=== PATIENT | male | born 1935 | race Caucasian/White ===

== ENCOUNTER 2017-08-19 08:18 | Outpatient (CLI) | payer MEDICARE ==
--- NOTE | 2017-08-19 10:08 | RAD ---
4 VIEWS LUMBOSACRAL SPINE: Date: 08/19/17 COMPARISON: None. HISTORY: Low back pain for several years. COMPARISON: None. FINDINGS: Four views of the lumbosacral spine show slight wedging of the L3 vertebral body. There is Grade I an terolisthesis of L3 on L4. This is unchanged with flexion and extension, although there is apparent w idening of the posterior aspect of the L3-4 intervertebral disc with extension when compared to flexi on. There is loss of intervertebral disc space height throughout the rest of the lumbar spine. Modera te osteophytes and severe posterior facet arthrosis are present. 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 POS: MARIO
--- NOTE | 2017-08-19 11:30 | MRI ---
MRI OF THE LUMBAR SPINE WITHOUT CONTRAST: INDICATIONS: An 81-year-old male with lumbar radiculopathy and low back pain for several years. COMPARISON: Lumbar radiograph dated 08/19/2017. FINDINGS: There are five lumbar type vertebra. There is a 2.7 cm T2 hyperintense, T1 hypointense lesion involving the left mid kidney, consistent wi th a simple cyst. No retroperitoneal lymphadenopathy is evident. There is modic endplate degenerative change seen at L3-L4 and at T11-T12. The conus is seen to termi ciera at L1. At the L5-S1 level, there is a broad-based disk bulge with a superimposed central annular fissure, me asuring 1.1 cm. There is moderate right and mild left facet joint degenerative change. The broad-ba sed disk bulge with facet hypertrophy and loss of disk space height at L5-S1 induces moderate to roseanna re right neural foraminal narrowing. At L4-L5, there is grade 1 anterolisthesis, likely related to severe facet degenerative change. Ther e is a broad-based disk bulge, in addition to ligamentum flavum hypertrophy and facet hypertrophy ind ucing moderate to severe central canal narrowing. The loss of disk space height, in addition to the anterolisthesis and facet hypertrophy, induces moderate to severe left and mild to moderate right michelle ral foraminal narrowing. At L3-L4, there is a broad-based disk osteophyte complex with severe facet hypertrophy and ligamentum flavum hypertrophy inducing severe central canal narrowing. The disk bulge, in addition to the face t hypertrophy and loss of disk space height induces severe left and mild right neural foraminal narro wing. At L2-L3, there is a disk osteophyte complex with facet hypertrophy inducing mild neural foraminal na rrowing with moderate bilateral neural foraminal narrowing. At L1-L2, there is a mild broad-based bulge without appreciable central canal or neural foraminal ras rowing. At T12-L1, there is a mild broad-based bulge without appreciable central canal or neural foraminal na rrowing. At T11-T12, there is a broad-based bulge with facet hypertrophy inducing mild central canal narrowing , seen on the sagittal images only. IMPRESSION: 1. Severe central canal narrowing at L3-L4 with severe left and mild right neural foraminal narrowin g. 2. Moderate to severe central canal narrowing at L4-L5 with moderate to severe left and mild to mode rate right neural foraminal narrowing. 3. Moderate to severe right neural foraminal narrowing at L5-S1 due to a disk osteophyte complex and facet hypertrophy. 4. Mild central canal narrowing at L2-L3 with moderate bilateral neural foraminal narrowing. 5. Mild central canal narrowing seen at T11-T12. POS: OFF
== END 2017-08-19 08:19 | disposition home or self-care (01) ==
LOC: TBSIIMAG 08:18
PROVIDERS: ATTEND Surgery
DX: M47.26 Other spondylosis with radiculopathy, lumbar region (principal); M43.16 Spondylolisthesis, lumbar region; M48.061 Spinal stenosis, lumbar region without neurogenic claudication; M99.53 Intervertebral disc stenosis of neural canal of lumbar region; M25.78 Osteophyte, vertebrae; M48.04 Spinal stenosis, thoracic region
CPT/HCPCS: 72100; 72148

== ENCOUNTER 2017-08-27 23:15 | Inpatient (IN) | payer MEDICARE ==
[2017-08-28 01:06] LABS: CKMB 2.3 ng/mL (0-6.6)
[2017-08-28 01:21] LABS: Troponin I 1.494 ng/mL (< 0.028)
--- NOTE | 2017-08-28 02:32 | HP ---
PRIMARY CARE PHYSICIAN: Dr. Triplett. REASON FOR ADMISSION: Transfer from [facility] for pneumonia, non-ST fara vation [place]. HISTORY OF PRESENT ILLNESS: An 81-year-old male who was having cough productive of yellowish sputum for last 3 days. He started having high-grade fever today. The patient's measured temperature, at that time it was 101. The patient was taken to local urgent care in [place]. At that time, the patient had a chest x-ray, which was unremarkable. Flu screen was negative. The patient was hypoxic and he was having high grade fever with 101 temperature and that is why he was directed to [facility]. At [facility], the patient was hypoxic. He had elevated BNP, as well as elevated WBC count. His chest x-ray showed left lower lobe infiltration. He was given Rocephin, louis thromycin, aspirin, and nitroglycerin. The patient had a significantly abnormal troponin though the patient was not complaining of any chest pain, palpitation, dizziness, but his troponin was significa ntly elevated and considering Non-STEMI, the patient was given aspirin and nitroglycerin. Subsequent ly, this patient was transferred to our hospital for higher level of care. This patient is up to date in flu and pneumonia vaccine. He has cough productive of yellowish sputum . He denies any pleuritic chest pain. He denies any recent travel or sick exposure. He denies any recent upper respiratory infection. REVIEW OF SYSTEMS: The following complete review of systems was negative, unless otherwise mentioned in the HPI or below: Constitutional: Weight loss or gain, ability to conduct usual activities. Skin: Rash, itching. Eyes: Double vision, pain. ENT/Mouth: Nose bleeding, neck stiffness, pain, tenderness. Cardiovascular: Palpitations, dyspnea on exertion, orthopnea. Respiratory: Shortness of breath, wheezing, cough, hemoptysis, fever or night sweats. Gastrointestinal: Poor appetite, abdominal pain, heartburn, nausea, vomiting, constipation, or diarr hea. Genitourinary: Urgency, frequency, dysuria, nocturia. Musculoskeletal: Pain, swelling. Neurologic/Psychiatric: Anxiety, depression. Allergy/Immunologic: Skin rash, bleeding tendency. Please see my HPI for pertinent positives and negatives. All other review of systems reviewed and ne gative except as mentioned in the HPI. ALLERGIES: No known drug allergies. CURRENT HOME MEDICATIONS: Atenolol 50 mg twice daily, lisinopril 20 mg twice daily, amlodipine 5 mg p.o. daily, Plavix 75 mg p.o. daily, Zocor 20 mg p.o. at bedtime, metformin 500 mg twice daily, multi vitamin 1 tablet p.o. daily, aspirin 81 mg p.o. daily, Coenzyme Q10 of 30 mg 2 tablets daily, saw pal metto 500 mg 2 tablets daily in the morning. PAST MEDICAL HISTORY: Coronary artery disease, required CABG; diabetes, type 2; hypertension; glauco ma; gastroesophageal reflux disease; gallstone; history of pancreatitis; mild Alzheimer's dementia; c hronic kidney disease, stage 3; history of melanoma; benign enlargement of prostate. PAST SURGICAL HISTORY: CABG, cholecystectomy, hernia repair, bilateral carotid surgery. PAST PSYCHIATRIC HISTORY: Reviewed and negative. SOCIAL HISTORY: The patient is a former smoker. He quit smoking more than 10 years ago. He is tavia ied. He lives at home with his . No history of alcohol or other illicit drug abuse. FAMILY HISTORY: No strong family history of premature coronary artery disease, stroke or cancer. EMERGENCY ROOM COURSE: The patient has received Rocephin, azithromycin, nitroglycerin, aspirin, Tyle nol 1 gram at other emergency room. ADDITIONAL INFORMATION: This patient is also following Dr. Solomon for his chronic low back pain prob darrion and he is planned for surgery and that is why he was instructed to get a cardiology clearance bef [facility] surgery and patient's family member made a followup appointment with Dr. Mullen and they are sabra g to see him on coming Thursday. The patient's family member also request cardiac clearance before discharge and cardiology evaluation. PHYSICAL EXAMINATION: VITAL SIGNS: Currently in our emergency room, blood pressure 141/71, pulse 91, respiratory rate 18, temperature 99.9, saturation 84% on room air, weight 62.1 kilograms. GENERAL: The patient is currently ill. No obvious acute distress. HEAD: Normocephalic, atraumatic. EYES: Pupils are round and reactive to light. Extraocular muscle intact. ENT: Oropharynx within normal limits. Moist mucous membranes. No oral lesions. No pharyngeal eryt sierra, no exudate. NECK: Supple, no JVD, no thyromegaly, no carotid bruits. LUNGS: Bibasilar reduced air entry, left basal rales and rhonchi noted. CARDIAC: S1, S2 appears regular. No murmur, no gallop, no rub. ABDOMEN: Soft, bowel sounds present, nontender, nondistended. No organomegaly, no mass, no suprapub ic tenderness. BACK: Unremarkable, no CVA tenderness. EXTREMITIES: Upper extremity: Passive movement of all joints are normal. Lower extremity: No carlos a. Good peripheral pulsation. SKIN: No skin rash. HEMATOLOGICAL SYSTEM: No lymphadenopathy. NEUROLOGIC: Nonfocal examination. SIGNIFICANT LABORATORY DATA AND IMAGIN. Monitor showing sinus rhythm. 2. Blood test done at [facility] reviewed, currently urinalysis is mikal l. 3. Troponin I 1.77 and then 1.91, glucose 319, BUN 19, creatinine 1.39, potassium 2.9, sodium 139, c hloride 100, carbon dioxide 27, calcium 9.1, bilirubin 0.4, alkaline phosphatase 49, AST 33, ALT 32, protein 7.3, albumin 3.7, magnesium 1.5, phosphorus 2.6. BNP 2334, lactic acid 2.9. CBC: WBC 12.0, hemoglobin 11.8, platelet 219. 4. Chest x-ray consistent with left lower lobe pneumonia, postsurgical changes. ASSESSMENT AND PLAN/IMPRESSION: 1. Sepsis with acute organ dysfunction. This patient has leukocytosis, high grade fever, lactic aci dosis. At the same time, the patient has hypoxic respiratory failure and non-STEMI type 2. All cons istent with acute sepsis with acute organ dysfunction. The patient will be given broad spectrum anti biotic therapy with Rocephin and Levaquin. We will follow up on culture result and change antibiotic therapy accordingly. 2. Acute hypoxic respiratory failure associated with left lower lobe community-acquired pneumonia. We will monitor oxygen saturation while in hospital. We will continue to provide oxygen to keep satu ration above 92%. 3. Non-ST elevation myocardial infarction, type 2. This patient's elevated troponin is most likely related with demand ischemia. This patient does not have any angina. At this point, we will consult Cardiology for their opinion. Meanwhile, we will continue with aspirin 325 mg p.o. daily, nitroglyc selin on p.r.n. basis. We will check lipid profile for risk stratification. We will obtain echocardi ography. Further decision will defer to Cardiology. We will do serial cardiac enzymes as well. 4. Abnormal electrolytes. This patient has hypokalemia and hypomagnesemia. We will replace magnesi um sulfate 2 grams and potassium chloride 20 mEq IV one time dose and we will repeat labs tomorrow. 5. Diabetes, type 2. We will continue insulin as per sliding scale per protocol and we will continu e his home medication as well as insulin as per home dosage. 6. Hypertension. We will continue lisinopril 20 mg twice daily and atenolol 50 mg twice daily and a mlodipine 5 mg p.o. daily. We will continue with nitro patch q.8 hourly. 7. Coronary artery disease with history of coronary artery bypass graft. We will continue aspirin, Plavix, statin therapy, beta daen therapy, and CAN inhibitor as per home dosage. 8. Dyslipidemia. Continue Zocor 20 mg p.o. at bedtime and check lipid profile tomorrow morning. 9. Chronic kidney disease, stage 3. We will monitor renal function and avoid nephrotoxic agents. 10. Elevated BNP. We will obtain echocardiography. This patient might have underlying chronic syst olic heart failure. We will avoid giving him fluid to prevent fluid overload status. 11. Normocytic anemia. We will continue multivitamin therapy while in hospital. 12. Deep venous thrombosis prophylaxis. Lovenox 40 mg subcutaneously daily. 13. Gastrointestinal prophylaxis. Pepcid 20 mg p.o. b.i.d. 14. Code status: The patient is FULL CODE. The patient's is surrogate decision maker. Disposition plan based on clinical course. We are expecting patient's stay in the hospital more than 2 midnights. Plan of care discussed with the patient and family member at bedside in the emergency room.
[2017-08-28 03:27] VITALS: BMI 20.5
[2017-08-28] MEDS ORDERED: hydrALAZINE 20 MG/ML VIAL SLOW IVP PRN ×2 (03:44→03:46)
[2017-08-28] MEDS ORDERED: Sodium Chloride 0.65% Nasal 44 ML BOT EA NARE PRN (03:46)
[2017-08-28] MEDS ORDERED: cefTRIAXone\\ROCEPHIN 1 GM in Sodium Chloride 0.9% 100 ML IVPB SCH (03:46)
[2017-08-28] MEDS ORDERED: Artificial Tears 18 DROP/0.9 ML EA EYE PRN (03:46)
[2017-08-28] MEDS ORDERED: Diabetic Tussin 200 MG/10 ML UDCUP PO PRN (03:46)
[2017-08-28] MEDS ORDERED: Loratadine 10 MG TAB PO PRN (03:46)
[2017-08-28] MEDS ORDERED: Zolpidem Tartrate 5 MG TAB PO PRN (03:46)
[2017-08-28] MEDS ORDERED: Loperamide HCl 2 MG CAP PO PRN (03:46)
[2017-08-28] MEDS ORDERED: Dextrose 5% in Water 1,000 ML IV PRN (03:46)
[2017-08-28] MEDS ORDERED: Acetaminophen 325 MG TAB PO PRN (03:46)
[2017-08-28] MEDS ORDERED: Senokot 8.6 MG TAB PO PRN (03:46)
[2017-08-28] MEDS ORDERED: Milk Of Magnesia 30 ML UDCUP PO PRN (03:46)
[2017-08-28] MEDS ORDERED: Dextrose 50% Abboject 50 ML SYRINGE SLOW IVP PRN (03:46)
[2017-08-28] MEDS ORDERED: Ondansetron HCl/PF 4 MG/2 ML Vial IVP PRN (03:46)
[2017-08-28] MEDS ORDERED: Nitroglycerin 0.4 MG TAB (25 Tab Bottle) SL PRN (03:46)
[2017-08-28] MEDS ORDERED: Ondansetron ODT 4 MG TAB PO PRN (03:46)
[2017-08-28] MEDS ORDERED: Mag-Al 1200 mg/1200 mg/30 ML UDCUP PO PRN (03:46)
[2017-08-28] MEDS ORDERED: HYDROcodone/Acetaminophen 5/325 mg Tablet PO PRN (03:46)
[2017-08-28] MEDS ORDERED: Eucerin (Mineral Oil/Petrolatum,White) 30 gm Jar TOP PRN (03:46)
[2017-08-28] MEDS ORDERED: Furosemide 40 MG/4 ML VIAL ONE (04:09)
[2017-08-28] MEDS ORDERED: Furosemide 40 MG/4 ML VIAL SLOW IVP SCH (04:15)
[2017-08-28] MEDS ORDERED: Nitroglycerin 50 MG/250 ML BOT 250 ML IVPB SCH (04:15)
[2017-08-28] MEDS ORDERED: Magnesium Sulfate 3 GM in Sodium Chloride 0.9% 100 ML IVPB SCH (04:30)
[2017-08-28] MEDS ORDERED: Potassium Chloride 40 MEQ in Sodium Chloride 0.9% 250 ML 250 ML IVPB SCH ×4 (04:30)
--- NOTE | 2017-08-28 05:01 | PRG ---
DATE OF SERVICE: 08/28/2017 SUBJECTIVE: Stefano nobles was called. The patient was seen and examined at bedside. The patient was h ypertensive. His blood pressure was over 210/90. He was hypoxic and saturating only 91% with 3-4 li ters oxygen. OBJECTIVE: On examination, he has bibasilar rales. He has end expiratory wheezing. Clinically seem s like patient has developed acute pulmonary edema. ASSESSMENT AND PLAN: We gave him Lasix 40 mg IV. We decided to transfer him to ICU. We will start nitroglycerin drip. We will repeat chest x-ray. We will check magnesium and routine labs this morni ng including BNP. We will also consult rental coordinator because patient is in CCU. Plan of care discus sed with the patient's at bedside. At this point, impression is acute pulmonary edema and acute respiratory failure with hypoxia, most likely due to acute congestive heart failure, will closely mo nitor in CCU and titrate nitroglycerin drip.
[2017-08-28] MEDS: Nitroglycerin 2% Ointment 1 INCH/1 GM Packet TOP SCH ×3 (05:23→22:27)
[2017-08-28] MEDS: Furosemide 40 MG/4 ML VIAL SLOW IVP SCH ×2 (05:24→14:25)
[2017-08-28 05:29] LABS: Lactic Acid 1.9 mmol/L (0.5-2.2)
[2017-08-28] MEDS ORDERED: Nitroglycerin 2% Ointment 1 INCH/1 GM Packet TOP SCH (06:00)
[2017-08-28] MEDS: HumaLOG 300 UNITS/3 ML VIAL SC PRN ×3 (06:16→17:31)
[2017-08-28 07:39] LABS: #Lymphocytes 2.4 thou/uL (1.20-3.40); #Monocytes 1.6 thou/uL (0.11-0.59); #Neutrophils 11.5 thou/uL (1.40-6.50); %Eosinophils 0.1 % (0.0-10.0); %Lymphocytes 15.2 % (21.0-51.0); %Monocytes 10.4 % (0.0-10.0); %Neutrophils 74.2 % (42.0-75.0); Hemoglobin 12.6 g/dL (14.0-18.0); Mean Corpuscular HGB CONC 32.1 g/dL (32.0-36.0); Mean Corpuscular Hemoglobin 31.7 pg (27.0-31.0); Mean Corpuscular Volume 98.8 fl (80.0-94.0); Mean Platelet Volume 8.4 fL (7.4-10.4); Platelet Count 241 thou/uL (130-400); RBC Distribution Width 12.5 % (11.5-14.5); Red Blood Cell (RBC) Count 3.97 mill/uL (4.70-6.10); White Blood Cell (WBC) Count 15.5 thou/uL (4.8-10.8)
[2017-08-28 07:50] LABS: ALT (SGPT) 28 U/L (8-55); AST (SGOT) 29 U/L (5-34); Albumin 3.8 g/dL (3.4-4.8); Alkaline Phosphatase 50 U/L (40-150); Anion Gap 15 mmol/L (10-20); BUN (Urea Nitrogen) 19 mg/dL (8.4-25.7); Bilirubin, Total 0.4 mg/dL (0.2-1.2); Calc. Creatinine Clearance 39 mL/min (70-130); Calcium 9.1 mg/dL (7.8-10.44); Carbon Dioxide 24 mmol/L (23-31); Chloride 101 mmol/L (98-107); Estimated GFR-MDRD 50; Globulin 3.5 g/dL (2.4-3.5); Glucose 327 mg/dL (83-110); Protein, Total 7.3 g/dL (5.8-8.1); Sodium 137 mmol/L (136-145)
[2017-08-28 07:53] LABS: Potassium 2.9 mmol/L (3.5-5.1)
[2017-08-28 08:01] LABS: Band 24 % (5-11); Lymphocytes 20 % (21-51); MDiff Complete? YES; Monocytes 13 % (0-10); Neutrophil 42 % (42-75); RBC Morphology Normal; Reactive Lymphocytes 1 % (0-10)
--- NOTE | 2017-08-28 08:08 | CON ---
DATE OF CONSULTATION: 08/28/2017 CONSULTING PHYSICIAN: Dr. Garcia from the [facility]. REASON FOR CONSULTATION: Acute respiratory failure. HISTORY OF PRESENT ILLNESS: The patient is a pleasant 81-year-old male who [facility] emergency room at [facility] in [place]. There he had presented with cough with productive sputum for the last 3 days. He had a fever of 101 prior to admission. He was found to have a chest x-ray with left lower lobe infiltrate. He was started on antibiotics. He als o had an abnormal troponin; therefore transfer was requested to this facility for further evaluation. Last night he decompensated while on the floor and required a Code Green. He was transported to [facility] CCU. He was placed on noninvasive positive pressure ventilation. He was given several doses of [place] six and is now breathing better this morning. He can give a history without becoming short of breath at this time. PAST MEDICAL HISTORY: 1. Coronary artery disease. 2. Type 2 diabetes mellitus. 3. Glaucoma. 4. Gastroesophageal reflux disease. 5. Pancreatitis. 6. Early Alzheimer dementia. 7. Chronic kidney disease stage 3. 8. Melanoma. 9. Benign prostatic hypertrophy. PAST SURGICAL HISTORY: 1. Coronary bypass grafting surgery. 2. Coronary stent placement. 3. Cholecystectomy. 4. Hernia repair. 5. Bilateral carotid surgery. PSYCHIATRIC HISTORY: Unremarkable. MEDICATIONS PRIOR TO ADMISSION: Atenolol 50 mg twice daily, lisinopril 20 mg twice daily, amlodipine 5 mg daily, Plavix 75 mg daily, Zocor 20 mg nightly, metformin 500 mg b.i.d., multivitamin 1 daily, aspirin 81 mg daily, Coenzyme Q10 2 tablets daily, Saw [place] 500 mg 2 tablets every morning. ALLERGIES: None. SOCIAL HISTORY: The patient quit smoking 30 years ago. He smoked for about 10 years. He is . 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 He does not consume alcohol, he does not use illicit drugs. FAMILY MEDICAL HISTORY: Unremarkable for chronic lung disease. REVIEW OF SYSTEMS: A 12 point review of systems was otherwise negative except for that in the histor y of present illness. PHYSICAL EXAMINATION: VITAL SIGNS: Temperature 98.7, pulse 75, blood pressure 140/75. Total intake 31, output 1300. Off the BiPAP. GENERAL: The patient is awake and alert and conversant and in no distress. HEENT: Remarkable for alopecia. Pupils react. Sclerae are anicteric. Oropharynx clear. NECK: No adenopathy, no bruits, no JVD. LUNGS: Now clear to auscultation without wheezing or rhonchi. CARDIAC: S1, S2 regular without audible murmur, rub or gallop. ABDOMEN: Soft, nontender, no hepatosplenomegaly. EXTREMITIES: Without clubbing, cyanosis, or edema. He has mild muscle wasting. He has full sensati on throughout. Moves all 4 extremities without difficulty. Cranial nerves II-XII are intact. SKIN: Shows no bruising or jaundice. LABORATORY DATA: White blood cell count 15.5, hemoglobin 12, hematocrit 39.2, platelet count 241. T roponin 1.4. BNP 2373. The remainder of his chemistry is pending. Chest x-ray shows hyperinflation. There were cephalization of flow last night. No acute infiltrates that looked very suspicious for pneumonia. ASSESSMENT: 1. Acute systolic congestive heart failure. 2. Acute respiratory failure requiring mechanical ventilation. 3. Question of concurrent pneumonia. 4. Diabetes mellitus. 5. History of coronary artery disease. PLAN: 1. I have removed the BiPAP this morning and we will see how he does. Currently, he is on nitroglyc selin drip, but I would assume that I can probably be tapered off. 2. Continue diuresis. 3. Continue IV antibiotics for the time being. 4. Cardiology consultation has been requested and is pending. 5. Seventy minutes time was spent on this case, of those 70 minutes, greater than 50% of the time wa s spent in counseling and coordination of care.
--- NOTE | 2017-08-28 08:33 | RAD ---
CHEST 1 VIEW: Date: 08/28/17 HISTORY: Respiratory distress. COMPARISON: Chest 2 views dated 08/27/17. FINDINGS: Heart size upper limits of normal. There are new interstitial and alveolar opacities throughout the l ungs. No pneumothorax. The left costophrenic sulcus is not well interrogated and is out of field of v iew. IMPRESSION: 1. Cardiomegaly with interstitial and developing alveolar edema. Follow-up after treatment recommend ed. 2. Multiple left-sided skin folds creating Mach bands, which could be interpreted as pneumothorax al though is felt to just be skin folds. POS: STACY
[2017-08-28] MEDS ORDERED: Amlodipine 5 MG TAB PO SCH (09:00)
[2017-08-28] MEDS ORDERED: Atenolol 50 MG TAB PO SCH (09:00)
[2017-08-28] MEDS ORDERED: Enoxaparin Sodium 40 MG/0.4 ML SYRINGE SC SCH (09:00)
[2017-08-28] MEDS: Aspirin 325 MG TAB PO SCH (09:51)
[2017-08-28] MEDS: Lisinopril 20 MG TAB PO SCH ×2 (09:51→21:08)
[2017-08-28] MEDS: Ubidecarenone 50 MG CAP PO SCH (09:52)
[2017-08-28] MEDS: Famotidine 20 MG TAB PO SCH ×2 (09:53→20:51)
[2017-08-28] MEDS: Multivitamin W/ Minerals 1 TAB PO SCH ×2 (09:53→14:27)
[2017-08-28] MEDS: guaiFENesin ER 600 MG TAB PO SCH ×2 (09:53→20:52)
[2017-08-28] MEDS: Clopidogrel Bisulfate 75 MG TAB PO SCH ×2 (09:54→14:27)
[2017-08-28] MEDS: metFORMIN 500 MG TAB PO SCH ×3 (09:54→17:12)
[2017-08-28 12:49] LABS: Critical Call Chem Troponin I RESULT DECREASING; Troponin I 0.775 ng/mL (< 0.028)
--- NOTE | 2017-08-28 13:37 | CON ---
DATE OF CONSULTATION: 08/28/2017 REASON FOR CONSULTATION: Pulmonary edema, non-ST elevation myocardial infarction, history of coronar y bypass grafting approximately 10 years ago. HISTORY OF PRESENT ILLNESS: Mr. Mei is 81 years of age. He recently had a fever and shortness o f breath, just did not feel well. His temperature the family says was up to 101 or 102. He had a sw ab of his nose, did not have influenza. He has had productive sputum. He was given some antibiotics . The patient was sent to the emergency room after the physician apparently in the clinic was concer chava about him. They initially thought he had left lower lobe infiltrate, but found that he had incre ased troponin as well. He was sent here for further evaluation. While he is here, he decompensated, became a Code Green, was transported to the CCU, he was on BiPAP for some time. He was given severa l doses of Lasix. He came off the BiPAP and is breathing better. The family states that every time he tried to lay down he would start coughing and had to sit up. That has improved. He had no chest pain. PAST MEDICAL HISTORY: 1. Coronary artery disease. He had a myocardial infarction at age 48. 2. He has had multiple stents implanted in his heart he thinks prior to his bypass. 3. Coronary bypass grafting was 1987 x5. 4. History of diabetes. 5. Reflux. 6. Pancreatitis. 7. Stage 3 renal failure. 8. Melanoma in the past. PAST SURGICAL HISTORY: 1. Previous bypass surgery. 2. Previous stenting. 3. Carotid stenting. PSYCHIATRIC HISTORY: Unremarkable. MEDICATIONS: (Prior to admission) 1. Atenolol. 2. Lisinopril. 3. Amlodipine. 4. Plavix. 5. Metformin. 6. Aspirin. 7. CoQ10. 8. Saw [place]. ALLERGIES: None. SOCIAL HISTORY: Quit smoking 30 years ago. Occasional alcohol, occasional red wine. FAMILY HISTORY: Unremarkable for heart disease at a young age. REVIEW OF SYSTEMS: CONSTITUTIONAL: No significant weight gain or loss. VISION: No changes. HEARING: No changes. PULMONARY: No cough or wheezing. GASTROINTESTINAL: No nausea, vomiting, diarrhea. SKIN: No rashes. NEUROLOGIC: No unilateral weakness or numbness. PSYCHIATRIC: No unusual depression or anxiety. HEMATOLOGIC: No unusual bruising. GENITOURINARY: No burning with urination. He does have prostatism, however. PHYSICAL EXAMINATION: GENERAL: This is a very pleasant, but somewhat frail-appearing elderly gentleman. He has looks like medium to tall stature and he weighs just over 60 kilograms. VITAL SIGNS: His blood pressure is 120/70, pulse is 70, it is currently regular. EYES: Sclerae nonicteric. Mouth; mucous membranes moist. NECK: Supple, no lymphadenopathy. LUNGS: Currently, clear anteriorly and laterally. CARDIOVASCULAR: No murmur, rub or gallop. ABDOMEN: Soft, nontender, no hepatosplenomegaly. EXTREMITIES: Warm and dry, no clubbing or cyanosis. There is a very mild ankle edema. PULSES: Per ipheral pulses; good femoral pulses bilaterally. Good popliteal pulses bilaterally. Dorsalis pedis and posterior tibial pulses are diminished. SKIN: Warm and dry. PSYCHIATRIC: Mood and affect are normal. He is alert and oriented. PERTINENT LABORATORY: Potassium is 3.9, blood sugar is 327, creatinine is 1.37. Estimated GFR is 50 . Hemoglobin is 12.6. BNP is severely elevated at 2378. Chest x-ray shows some cardiomegaly with pulmonary vascular congestion and pulmonary edema. Echocard iogram ejection fraction 35-40%, lateral wall was akinetic, the anterior wall is severely hypokinetic . There is mild aortic stenosis, but not hemodynamically significant. EKG did not show any acute ST changes. ASSESSMENT: 1. Congestive heart failure, systolic, acute, likely chronic with increased BNP. The patient with s evere pulmonary edema requiring BiPAP last night. The congestive heart failure is improving. 2. Previous bypass surgery approximately 10 years ago x5 according to the family. 3. Stage 3 renal failure. 4. Diabetes. 5. Hypokalemia. 6. Fever, which seems to have resolved. PLAN: At this time, the patient's heart failure seems to be improving and he appears stabilizing get ting better. Would recommend the followin. Continue enoxaparin. 2. Continue aspirin and Plavix. 3. Change from atenolol to carvedilol. 4. Tentatively plan for cardiac catheterization for Thursday morning. I discussed risks of stroke, he art attack, iodine allergy, loss of blood supply to the leg or kidney, stent thrombosis, stent resten osis. The family also understands the increased risk of stenting grafts including myocardial infarct ion, embolization of debris. They understand that prognosis is guarded in this gentleman. He would be a poor candidate for reoperation with depressed left ventricular function age 81, and for repeat o peration in terms of bypass would be high risk. We will follow with you. Dr. Dickinson will see this weekend. We will tentatively plan catheterization M on. At this time it seems most prudent to try to improve his clinical situation prior to proceeding to the hatchery laborer. If the situation changes, could go to the hatchery laborer on an urgent basis, b ut I think it would be better if possible to treat his heart failure first.
--- NOTE | 2017-08-28 14:53 | PDOC.EVN ---
Event Note - Event Note Event Note: Pt nicko nd examined at bedside. Care discussed w family in detail.Chart reviewed. Doing better.Off of Bipap now.O2 sats [facility]. PCCM and cardiology consulted. Yolanda NSTEMI. Lovenox BID and continue ASA+plavix.cardiac cath Thursday. Cont Diuresis. ECHO shows low EF 30% with wall motion abnormalities.Yolanda Acute Systolic CHF> strict I/Os. CCU monitoring for now. am labs on statin and BB.
[2017-08-28] MEDS: Carvedilol 6.25 MG TAB PO SCH (17:16)
[2017-08-28 17:26] LABS: Troponin I 0.827 ng/mL (< 0.028)
[2017-08-28] MEDS ORDERED: cefTRIAXone\\ROCEPHIN 1 GM, Syringe 0.4 ML in Sterile Water 9.6 ML SLOW IVP SCH (18:00)
[2017-08-28] MEDS ORDERED: Potassium Chloride 20 MEQ TAB PO SCH (20:00)
[2017-08-28] MEDS: Simvastatin 20 MG TAB PO SCH (20:51)
[2017-08-28] MEDS ORDERED: Nitroglycerin 2% Ointment 1 INCH/1 GM Packet ONE (20:58)
[2017-08-28] MEDS ORDERED: Enoxaparin Sodium 60 MG/0.6 ML SYRINGE SC SCH (21:00)
[2017-08-28] MEDS ORDERED: Communication Order-Pharmacy FS SCH (21:30)
[2017-08-29 04:53] LABS: #Eosinphils 0.1 thou/uL (0.0-0.7); #Lymphocytes 1.4 thou/uL (1.20-3.40); #Monocytes 0.9 thou/uL (0.11-0.59); #Neutrophils 8.4 thou/uL (1.40-6.50); %Basophils 0.3 % (0.0-1.0); %Eosinophils 0.7 % (0.0-10.0); %Lymphocytes 12.5 % (21.0-51.0); %Monocytes 8.5 % (0.0-10.0); Hemoglobin 10.4 g/dL (14.0-18.0); Mean Corpuscular HGB CONC 32.5 g/dL (32.0-36.0); Mean Corpuscular Hemoglobin 31.7 pg (27.0-31.0); Mean Corpuscular Volume 97.6 fl (80.0-94.0); Mean Platelet Volume 8.3 fL (7.4-10.4); Platelet Count 205 thou/uL (130-400); Red Blood Cell (RBC) Count 3.28 mill/uL (4.70-6.10); White Blood Cell (WBC) Count 10.7 thou/uL (4.8-10.8)
[2017-08-29 05:10] LABS: ALT (SGPT) 21 U/L (8-55); AST (SGOT) 22 U/L (5-34); Albumin 3.1 g/dL (3.4-4.8); Alkaline Phosphatase 45 U/L (40-150); Anion Gap 9 mmol/L (10-20); BUN (Urea Nitrogen) 23 mg/dL (8.4-25.7); Bilirubin, Total 0.3 mg/dL (0.2-1.2); Calc. Creatinine Clearance 40 mL/min (70-130); Calcium 8.8 mg/dL (7.8-10.44); Carbon Dioxide 32 mmol/L (23-31); Cardiac Risk 2.9 (Less than 4.5); Chloride 102 mmol/L (98-107); Cholesterol 83 mg/dl (< 200 Desired); Estimated GFR-MDRD 52; Glucose 241 mg/dL (83-110); HDL Cholesterol 29 mg/dL (>60 Neg Risk); LDL Cholesterol, Calculated 36 mg/dL; Potassium 3.1 mmol/L (3.5-5.1); Protein, Total 6.1 g/dL (5.8-8.1); Sodium 140 mmol/L (136-145); Triglycerides 91 mg/dL (Less than 150)
[2017-08-29] MEDS: Furosemide 40 MG/4 ML VIAL SLOW IVP SCH (06:01)
[2017-08-29] MEDS: Nitroglycerin 2% Ointment 1 INCH/1 GM Packet TOP SCH ×3 (06:03→21:05)
[2017-08-29] MEDS ORDERED: Potassium Chloride 20 MEQ TAB PO SCH (06:15)
[2017-08-29] MEDS: HumaLOG 300 UNITS/3 ML VIAL SC PRN ×3 (07:36→21:02)
[2017-08-29] MEDS: metFORMIN 500 MG TAB PO SCH (07:36)
[2017-08-29] MEDS: Carvedilol 6.25 MG TAB PO SCH ×2 (07:36→17:03)
--- NOTE | 2017-08-29 09:01 | PRG ---
DATE OF SERVICE: 08/29/2017 He has made incredible improvement overnight. He has no complaints and he is anxious to get out of t he ICU. PHYSICAL EXAMINATION: VITAL SIGNS: Temperature 97.8, pulse 70, blood pressure 133/69. He has had no fever overnight, 24 h our intake 1618, output 4605. HEENT: Unremarkable. NECK: No JVD. LUNGS: Clear without wheezing or crackles. CARDIAC: S1 and S2 regular. ABDOMEN: Soft. EXTREMITIES: No edema. LABORATORY DATA: White blood cell count 10.7, hemoglobin 10, hematocrit 32, platelet count 205. Sod ium 140, potassium 3.1, chloride 102, CO2 32, BUN 23, creatinine 1.3, glucose 241. Troponin 0.8. Echocardiogram demonstrated an EF of 35-40% with mild aortic stenosis and mildly elevated pulmonary a rtery pressures. ASSESSMENT: 1. Congestive heart failure. 2. Acute respiratory failure which has improved to the point where he no longer needs BiPAP. 3. Myocardial infarction. 4. Low ejection fraction. PLAN: 1. Transfer to telemetry. 2. Change to oral antibiotics. 3. Planned cardiac catheterization for Thursday.
[2017-08-29] MEDS: Enoxaparin Sodium 40 MG/0.4 ML SYRINGE SC SCH ×2 (09:44→21:00)
[2017-08-29] MEDS: Multivitamin W/ Minerals 1 TAB PO SCH (09:45)
[2017-08-29] MEDS: guaiFENesin ER 600 MG TAB PO SCH ×2 (09:45→20:59)
[2017-08-29] MEDS: Clopidogrel Bisulfate 75 MG TAB PO SCH (09:45)
[2017-08-29] MEDS: Aspirin 325 MG TAB PO SCH (09:45)
[2017-08-29] MEDS: Ubidecarenone 50 MG CAP PO SCH (09:45)
[2017-08-29] MEDS ORDERED: Cefdinir 300 MG CAP PO SCH (11:15)
[2017-08-29] MEDS: Amlodipine 5 MG TAB PO SCH (14:10)
[2017-08-29] MEDS: Lisinopril 20 MG TAB PO SCH ×2 (14:10→21:00)
[2017-08-29] MEDS: Furosemide 40 MG TAB PO SCH (14:16)
--- NOTE | 2017-08-29 17:58 | PDOC.PN ---
- Subjective Encounter Start Date: 08/29/17 Encounter Start Time: 17:50 Subjective: f/u for NSTEMI, resp failure with transient BiPAP. Plan for C on -: 08/31/17. No current complaints of CP. - Objective Resuscitation Status: Resuscitation Status FULL:Full Resuscitation MAR Reviewed: Yes Vital Signs & Weight: Vital Signs (12 hours) Temp Pulse Resp BP Pulse Ox 08/29/17 17:03 151/80 H 08/29/17 15:46 98.6 F 70 16 100 08/29/17 14:27 98 08/29/17 14:10 75 133/69 08/29/17 13:00 98.5 F 08/29/17 07:54 98.4 F 75 19 100 08/29/17 07:36 133/69 Weight Admit Weight 140 lb 3.424 oz Weight 132 lb 4.438 oz Most Recent Monitor Data Heart Rate from ECG 70 NIBP 140/80 NIBP BP-Mean 89 Respiration from ECG 17 SpO2 96 I&O: 08/28/17 08/29/17 08/30/17 06:59 06:59 06:59 Intake Total 31.8 1618 1202 Output Total 1300 4605 1430 Balance -1268.2 -2987 -228 Result Diagrams: 08/29/17 04:10 08/29/17 04:10 Additional Labs: Accuchecks 08/29/17 08/29/17 08/29/17 15:59 11:26 06:59 POC Glucose 149 H 381 H 267 H 08/28/17 08/28/17 08/28/17 20:56 17:25 11:34 POC Glucose 93 259 H 282 H Laboratory Tests 08/28/17 08/28/17 08/28/17 00:31 04:10 04:19 WBC 15.5 H Hgb 12.6 L Band Neuts % (Manual) 24 H Potassium Creatinine Magnesium 1.8 Troponin I 1.494 H* B-Natriuretic Peptide 08/28/17 08/28/17 08/28/17 04:19 04:19 11:38 WBC Hgb Band Neuts % (Manual) Potassium 2.9 L* Creatinine 1.37 H Magnesium Troponin I 0.775 H* B-Natriuretic Peptide 2373.8 H 08/28/17 08/28/17 16:38 16:38 WBC Hgb Band Neuts % (Manual) Potassium 3.0 L Creatinine Magnesium 2.0 Troponin I 0.827 H* B-Natriuretic Peptide Radiology Reviewed by me: Yes (2D echo - EF 35-40%, lateral wall akinetic, mod TR) EKG Reviewed by me: Yes (Tele - SR in 70's) Phys Exam - Physical Examination Constitutional: NAD HEENT: PERRLA, oral pharynx no lesions Neck: no JVD, supple Respiratory: no wheezing, clear to auscultation bilateral Cardiovascular: RRR Gastrointestinal: soft, non-tender, no distention, positive bowel sounds Musculoskeletal: no edema, pulses present Neurological: normal sensation, moves all 4 limbs Psychiatric: A&O x 3 Skin: normal turgor, cap refill <2 seconds Dx/Plan (1) NSTEMI (non-ST elevated myocardial infarction) Code(s): I21.4 - NON-ST ELEVATION (NSTEMI) MYOCARDIAL INFARCTION Status: Acute Comment: Continue ASA and Plavix, Coreg, Lovenox 40mg sc q12h, plan for [facility] on 08/31/16 (2) Cardiomyopathy Code(s): I42.9 - CARDIOMYOPATHY, UNSPECIFIED Status: Chronic Comment: EF 35- 40%, ischemic work up in progress, Lasix 40mg po daily, Lisinopril 20mg BID (3) Acute respiratory failure with hypoxia Code(s): J96.01 - ACUTE RESPIRATORY FAILURE WITH HYPOXIA Status: Acute Comment: Resolved, NC prn (4) Hypokalemia Code(s): E87.6 - HYPOKALEMIA Status: Acute Comment: KCL replacement, repeat K+ level in am (5) CKD (chronic kidney disease) stage 3, GFR 30-59 ml/min Code(s): N18.3 - CHRONIC KIDNEY DISEASE, STAGE 3 (MODERATE) Status: Chronic (6) DM II (diabetes mellitus, type II), controlled Code(s): E11.9 - TYPE 2 DIABETES MELLITUS WITHOUT COMPLICATIONS Status: Chronic Comment: ISS, ADA (7) HTN (hypertension) Code(s): I10 - ESSENTIAL (PRIMARY) HYPERTENSION Status: Chronic Comment: Continue Coreg, Norvasc, Lisinopril - Plan plan discussed w/ family, continue antibiotics, DVT proph w/SCDs Stable currently -: Continue dual-antiplatelet therapy -: Simvastatin 20mg HS -: Continue Lovenox 40mg sc q12h -: Plan for [facility] 08/31/17 * AM lab: BMP
[2017-08-29] MEDS: Simvastatin 20 MG TAB PO SCH (20:59)
[2017-08-29] MEDS: Famotidine 20 MG TAB PO SCH (20:59)
--- NOTE | 2017-08-29 22:17 | PDOC.CTH ---
<Kayla Izaguirre - Last Filed: 08/29/17 22:14> Cardiology Progress Note - Subjective The pt seen and examined. No overnight events. No cardiac complaints. - Objective Vital Signs Temp Pulse Resp BP Pulse Ox 08/29/17 21:00 151/80 H 08/29/17 17:03 151/80 H 08/29/17 15:46 98.6 F 70 16 100 08/29/17 14:27 98 08/29/17 14:10 75 133/69 08/29/17 13:00 98.5 F Admit Weight 140 lb 3.424 oz Weight 132 lb 4.438 oz 08/28/17 08/29/17 08/30/17 06:59 06:59 06:59 Intake Total 31.8 1618 4202 Output Total 1300 4605 2030 Balance -1268.2 -2987 2172 - Physical Examination General/Neuro: alert & oriented x3 Neck: no JVD present Lungs: CTA, other: Heart: RRR Abdomen: soft Extremities: other: (No edema) - Telemetry Telemetry Rhythm: SR 70s - Labs Result Diagrams: 08/29/17 04:10 08/29/17 04:10 Troponin/CKMB CK-MB (CK-2) 2.3 ng/mL (0-6.6) 08/28/17 00:31 Troponin I 0.827 ng/mL (< 0.028) H* 08/28/17 16:38 - Assessment/Plan 1. NSTEMI - ASA, Plavix, Coreg, Lovenox 40mg sc q12h and statin, plan for [facility] on 08/31/16 2. Acute on Chronic systolic HF - Echo on 08/28/17 showed EF 35-40%, akinetic Lateral wall, severe hypokinetic inferior wall, mild LAE; on Lasix 40mg po daily , Lisinopril 20mg BID 3. Acute on CKD stage 3 - no changed 4. 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 HTN - stable with Coreg, Norvasc, and Lisinopril 6. DM type 2 - on Insulin SS 7. Hypokalemia - covered MAR reviewed Review of Systems - Review of Systems Constitutional: reports: no symptoms reported EENTM: reports: no symptoms reported Respiratory: reports: no symptoms reported Cardiac (ROS): reports: no symptoms reported ABD/GI: reports: no symptoms reported : reports: no symptoms reported <Jay Dickinson - Last Filed: 08/30/17 01:16> Cardiology Progress Note - Objective Vital Signs Temp Pulse Resp BP Pulse Ox 08/29/17 21:10 98.6 F 70 16 94 L 08/29/17 21:00 151/80 H 08/29/17 17:03 151/80 H 08/29/17 15:46 98.6 F 70 16 100 08/29/17 14:27 98 08/29/17 14:10 75 133/69 Admit Weight 140 lb 3.424 oz Weight 132 lb 4.438 oz 08/28/17 08/29/17 08/30/17 06:59 06:59 06:59 Intake Total 31.8 1618 4202 Output Total 1300 4605 2030 Balance -1268.2 -2987 2172 - Labs Result Diagrams: 08/29/17 04:10 08/29/17 04:10 Troponin/CKMB CK-MB (CK-2) 2.3 ng/mL (0-6.6) 08/28/17 00:31 Troponin I 0.827 ng/mL (< 0.028) H* 08/28/17 16:38 - Assessment/Plan The pt. was seen and eval. by me. I agree with the A/P by the [employer].
[2017-08-30 05:22] LABS: Anion Gap 13 mmol/L (10-20); BUN (Urea Nitrogen) 19 mg/dL (8.4-25.7); Calc. Creatinine Clearance 39 mL/min (70-130); Calcium 8.7 mg/dL (7.8-10.44); Carbon Dioxide 31 mmol/L (23-31); Chloride 99 mmol/L (98-107); Estimated GFR-MDRD 54; Glucose 254 mg/dL (83-110); Sodium 140 mmol/L (136-145)
[2017-08-30 05:27] LABS: Potassium 2.9 mmol/L (3.5-5.1)
[2017-08-30] MEDS: Nitroglycerin 2% Ointment 1 INCH/1 GM Packet TOP SCH ×3 (05:44→21:01)
[2017-08-30] MEDS: Cefdinir 300 MG CAP PO SCH (09:30)
[2017-08-30] MEDS: Lisinopril 20 MG TAB PO SCH ×2 (09:30→21:01)
[2017-08-30] MEDS: guaiFENesin ER 600 MG TAB PO SCH ×2 (09:30→21:01)
[2017-08-30] MEDS: Clopidogrel Bisulfate 75 MG TAB PO SCH ×2 (09:31→10:19)
[2017-08-30] MEDS: Amlodipine 5 MG TAB PO SCH (09:31)
[2017-08-30] MEDS: Potassium Chloride 20 MEQ TAB PO SCH ×2 (09:31→16:19)
[2017-08-30] MEDS: Carvedilol 6.25 MG TAB PO SCH ×2 (09:32→16:16)
[2017-08-30] MEDS: Multivitamin W/ Minerals 1 TAB PO SCH (09:32)
[2017-08-30] MEDS: Aspirin 325 MG TAB PO SCH ×2 (09:32→10:19)
[2017-08-30] MEDS: Ubidecarenone 50 MG CAP PO SCH (09:32)
[2017-08-30] MEDS: Enoxaparin Sodium 40 MG/0.4 ML SYRINGE SC SCH ×3 (09:32→21:00)
[2017-08-30] MEDS: HumaLOG 300 UNITS/3 ML VIAL SC PRN ×4 (09:37→21:51)
--- NOTE | 2017-08-30 09:39 | PRG ---
DATE OF SERVICE: 08/30/2017 SUBJECTIVE: He is feeling well, had no acute complaints. PHYSICAL EXAMINATION: VITAL SIGNS: Temperature 97.6, pulse 78, respirations 19, O2 saturation 97%, blood pressure 153/72. HEENT: Unremarkable. NECK: No JVD. CHEST: Clear. CARDIAC: S1 and S2 regular. ABDOMEN: Soft. EXTREMITIES: No edema. LABORATORY DATA: Sodium 140, potassium 2.9, chloride 99, CO2 31, BUN 19, creatinine 1.3, and glucose 254. ASSESSMENT: 1. Congestive heart failure - acute systolic. 2. Status post acute respiratory failure requiring bilevel positive airway pressure. 3. Myocardial infarction. RECOMMENDATIONS: 1. Replace potassium given the hypokalemia 2. Increase activity. 3. Further care per Cardiology.
[2017-08-30] MEDS: Furosemide 40 MG TAB PO SCH (16:16)
--- NOTE | 2017-08-30 16:54 | PDOC.CTH ---
Cardiology Progress Note - Objective Vital Signs Temp Pulse Resp BP Pulse Ox 08/30/17 16:15 71 19 137/73 99 08/30/17 09:31 78 08/30/17 08:00 97.6 F 78 19 08/30/17 07:33 97.6 F 78 19 153/72 H 97 08/30/17 06:00 77 13 169/86 H 96 Admit Weight 140 lb 3.424 oz Weight 134 lb 12.8 oz 08/29/17 08/30/17 08/31/17 06:59 06:59 06:59 Intake Total 1618 4552 Output Total 4605 2655 Balance -2987 1897 - Physical Examination General/Neuro: alert & oriented x3 Lungs: CTA Heart: RRR Abdomen: NT/ND - Telemetry Telemetry Rhythm: NSR - Labs Result Diagrams: 08/29/17 04:10 08/30/17 04:45 Troponin/CKMB CK-MB (CK-2) 2.3 ng/mL (0-6.6) 08/28/17 00:31 Troponin I 0.827 ng/mL (< 0.028) H* 08/28/17 16:38 - Assessment/Plan 1. NSTEMI - ASA, Plavix, Coreg, Lovenox 40mg sc q12h and statin, plan for [facility] tomorrow. 2. Acute on Chronic systolic HF - Echo on 08/28/17 showed EF 35-40%, akinetic Lateral wall, severe hypokinetic inferior wall, mild LAE; on Lasix 40mg po daily , Lisinopril 20mg BID 3. Acute on CKD stage 3 - no changed 4. 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 HTN - stable with Coreg, Norvasc, and Lisinopril 6. DM type 2 - on Insulin SS 7. Hypokalemia - covered MAR reviewed
--- NOTE | 2017-08-30 16:58 | PDOC.PN ---
- Subjective Encounter Start Date: 08/30/17 Encounter Start Time: 16:45 Subjective: f/u for NSTEMI with acute systolic CHF EF 30%. Medical mgmt currently -: and no symptoms. Plan for [facility] 08/31/17. - Objective Resuscitation Status: Resuscitation Status FULL:Full Resuscitation MAR Reviewed: Yes Vital Signs & Weight: Vital Signs (12 hours) Temp Pulse Resp BP Pulse Ox 08/30/17 16:15 71 19 137/73 99 08/30/17 09:31 78 08/30/17 08:00 97.6 F 78 19 08/30/17 07:33 97.6 F 78 19 153/72 H 97 08/30/17 06:00 77 13 169/86 H 96 Weight Admit Weight 140 lb 3.424 oz Weight 134 lb 12.8 oz Most Recent Monitor Data Heart Rate from ECG 70 NIBP 140/80 NIBP BP-Mean 89 Respiration from ECG 17 SpO2 96 I&O: 08/29/17 08/30/17 08/31/17 06:59 06:59 06:59 Intake Total 1618 4552 Output Total 4605 2655 Balance -2987 1897 Result Diagrams: 08/29/17 04:10 08/30/17 04:45 Additional Labs: Accuchecks 08/30/17 08/30/17 16:30 12:27 POC Glucose 290 H 299 H Laboratory Tests 08/28/17 08/28/17 08/28/17 00:31 04:10 04:19 WBC 15.5 H Hgb 12.6 L Band Neuts % (Manual) 24 H Potassium Creatinine Magnesium 1.8 Troponin I 1.494 H* B-Natriuretic Peptide 08/28/17 08/28/17 08/28/17 04:19 04:19 11:38 WBC Hgb Band Neuts % (Manual) Potassium 2.9 L* Creatinine 1.37 H Magnesium Troponin I 0.775 H* B-Natriuretic Peptide 2373.8 H 08/28/17 08/28/17 08/29/17 16:38 16:38 04:10 WBC Hgb Band Neuts % (Manual) Potassium 3.0 L 3.1 L Creatinine 1.32 H Magnesium 2.0 Troponin I 0.827 H* B-Natriuretic Peptide EKG Reviewed by me: Yes (Tele - SR) Phys Exam - Physical Examination Constitutional: NAD HEENT: PERRLA, oral pharynx no lesions Neck: no JVD, supple Respiratory: no wheezing, clear to auscultation bilateral Cardiovascular: RRR Gastrointestinal: soft, non-tender, no distention, positive bowel sounds Musculoskeletal: no edema, pulses present Neurological: normal sensation, moves all 4 limbs Psychiatric: A&O x 3 Skin: normal turgor, cap refill <2 seconds Dx/Plan (1) NSTEMI (non-ST elevated myocardial infarction) Code(s): I21.4 - NON-ST ELEVATION (NSTEMI) MYOCARDIAL INFARCTION Status: Acute Comment: Continue ASA and Plavix, Coreg, Lovenox 40mg sc q12h, plan for [facility] on 08/31/16 (2) Cardiomyopathy Code(s): I42.9 - CARDIOMYOPATHY, UNSPECIFIED Status: Chronic Comment: EF 35- 40%, ischemic work up in progress, Lasix 40mg po daily, Lisinopril 20mg BID (3) Acute respiratory failure with hypoxia Code(s): J96.01 - ACUTE RESPIRATORY FAILURE WITH HYPOXIA Status: Acute Comment: Resolved, NC prn (4) Hypokalemia Code(s): E87.6 - HYPOKALEMIA Status: Acute Comment: Persistent, KCL replacement, repeat K+ level in am (5) CKD (chronic kidney disease) stage 3, GFR 30-59 ml/min Code(s): N18.3 - CHRONIC KIDNEY DISEASE, STAGE 3 (MODERATE) Status: Chronic Comment: Appears to be baseline renal function (6) DM II (diabetes mellitus, type II), controlled Code(s): E11.9 - TYPE 2 DIABETES MELLITUS WITHOUT COMPLICATIONS Status: Chronic Comment: ISS, ADA (7) HTN (hypertension) Code(s): I10 - ESSENTIAL (PRIMARY) HYPERTENSION Status: Chronic Qualifiers: Hypertension type: essential hypertension Qualified Code(s): I10 - Essential (primary) hypertension Comment: Continue Coreg, Norvasc, Lisinopril - Plan foster care social worker, out of bed/ambulate, DVT proph w/SCDs Stable currently -: Continue ASA/Plavix, Coreg, Lisinopril -: Continue Lovenox 40mg sc q12h -: Continue Lasix 40mg po daily -: Plan for LHC in am 08/31/17 * AM lab: BMP
[2017-08-30] MEDS: Famotidine 20 MG TAB PO SCH (21:01)
[2017-08-30] MEDS: Simvastatin 20 MG TAB PO SCH (21:01)
[2017-08-31] MEDS: Nitroglycerin 2% Ointment 1 INCH/1 GM Packet TOP SCH ×3 (02:56→22:28)
[2017-08-31 05:25] LABS: Anion Gap 11 mmol/L (10-20); BUN (Urea Nitrogen) 17 mg/dL (8.4-25.7); Calc. Creatinine Clearance 46 mL/min (70-130); Calcium 8.9 mg/dL (7.8-10.44); Carbon Dioxide 31 mmol/L (23-31); Chloride 102 mmol/L (98-107); Estimated GFR-MDRD 64; Glucose 226 mg/dL (83-110); Potassium 3.3 mmol/L (3.5-5.1); Sodium 141 mmol/L (136-145)
[2017-08-31] MEDS: Enoxaparin Sodium 40 MG/0.4 ML SYRINGE SC SCH (05:33)
[2017-08-31] MEDS: Carvedilol 6.25 MG TAB PO SCH (05:37)
[2017-08-31] MEDS: Amlodipine 5 MG TAB PO SCH ×2 (05:37→09:49)
[2017-08-31] MEDS: Lisinopril 20 MG TAB PO SCH ×2 (05:38→21:17)
[2017-08-31] MEDS: Cefdinir 300 MG CAP PO SCH (05:38)
[2017-08-31] MEDS: Clopidogrel Bisulfate 75 MG TAB PO SCH (05:38)
[2017-08-31] MEDS: guaiFENesin ER 600 MG TAB PO SCH ×2 (05:38→21:17)
[2017-08-31] MEDS: Aspirin 325 MG TAB PO SCH (05:38)
[2017-08-31] MEDS: Ubidecarenone 50 MG CAP PO SCH (05:38)
[2017-08-31] MEDS: Multivitamin W/ Minerals 1 TAB PO SCH (05:38)
[2017-08-31] MEDS ORDERED: Sodium Chloride 0.9% 1,000 ML IV SCH ×2 (06:00→09:30)
[2017-08-31] MEDS ORDERED: Diazepam 5 MG TAB PO SCH (08:00)
[2017-08-31] MEDS ORDERED: Metoprolol Tartrate 5 MG/5 ML VIAL ONE (08:27)
[2017-08-31] MEDS ORDERED: Nitroglycerin 2% Ointment 1 INCH/1 GM Packet ONE (08:47)
[2017-08-31] MEDS ORDERED: Fentanyl 100 MCG/2 ML VIAL ONE (08:49)
[2017-08-31] MEDS ORDERED: Amlodipine 5 MG TAB PO SCH (09:14)
[2017-08-31] MEDS ORDERED: Acetaminophen/Codeine 30-300mg Tablet PO PRN (09:15)
[2017-08-31] MEDS ORDERED: Sodium Chloride 0.9% 200 ML IV SCH (09:15)
[2017-08-31] MEDS ORDERED: traMADol HCl 50 MG TAB PO PRN (09:15)
[2017-08-31] MEDS ORDERED: Nitroglycerin 0.4 MG TAB (25 Tab Bottle) SL PRN (09:15)
--- NOTE | 2017-08-31 10:24 | PRG ---
DATE OF SERVICE: 08/31/2017 The patient is post-cardiac catheterization today and says he is doing okay. PHYSICAL EXAMINATION: VITAL SIGNS: Temperature 97.7, pulse 66, blood pressure 160/80, respiratory rate 18. HEENT: Unremarkable. NECK: No JVD. CHEST: Clear without wheezing. CARDIAC: S1 and S2 regular. ABDOMEN: Soft. EXTREMITIES: No edema. LABORATORY DATA: Sodium 141, potassium 3.3, chloride 102, CO2 31, BUN 70, creatinine 1.1, glucose 22 6. ASSESSMENT: 1. Congestive heart failure. 2. Status post respiratory failure. 3. Diabetes mellitus. PLAN: Metformin was held for cardiac catheterization, probably needs to be restarted the day after t omorrow. His breathing is stable at this time. No further concerns from my standpoint. Pulmonary w ill sign off. Please recall if further assistance needed.
[2017-08-31] MEDS: HumaLOG 300 UNITS/3 ML VIAL SC PRN ×2 (11:10→16:51)
[2017-08-31] MEDS ORDERED: Iopamidol 370 76% 100 ML VIAL ONE (11:53)
--- NOTE | 2017-08-31 15:53 | PQF ---
CLINICAL DOCUMENTATION IMPROVEMENT CLARIFICATION FORM: ICD-10 Updated PLEASE DO AN ADDENDUM TO THE PROGRESS NOTE WITH ANY DOCUMENTATION UPDATES OR ADDITIONS AND CARRY THROUGH TO DC SUMMARY. THANK YOU. DATE: 08/31/17 ATTN: DR. ABBASI Please exercise your independent, professional judgment in responding to the clarification form. Clinical indicators are provided on the bottom of this form for your review Please check appropriate box(s) to clarify if the following diagnosis has been ruled in our ruled out: SEPSIS [ ] Ruled in diagnosis [ ] Continue to treat [ ] Resolved [ x ] Ruled out diagnosis [ ] Other diagnosis [ ] Unable to determine In addition, please specify: Present on Admission (POA): [ ] Yes [ ] No [ ] Unable to determine For continuity of documentation, please document condition throughout progress notes and discharge summary. Thank You. CLINICAL INDICATORS - SIGNS / SYMPTOMS / LABS H&P 08/28: "SEPSIS WITH ACUTE ORGAN DYSFUNCTION" WBC 15.5 BANDS 24 TEMP 101 PER H&P RR 26 RISKS: PNEUMONIA RESPIRATORY FAILURE TREATMENT: OMNICEF (08/30-PRESENT) IV LEVAQUIN (08/28-08/29) IV ROCEPHIN (08/28) (This form is maintained as a part of the permanent medical record) 2014 [employer], [employer]. All Rights Reserved GAGE [email or web address] Office: [phone] [facility]
[2017-08-31] MEDS: Carvedilol 25 MG TAB PO SCH (16:31)
[2017-08-31] MEDS: Furosemide 40 MG TAB PO SCH (16:31)
[2017-08-31] MEDS ORDERED: Carvedilol 6.25 MG TAB PO SCH (17:00)
--- NOTE | 2017-08-31 19:00 | DIS ---
DATE OF ADMISSION: 08/28/2017 DATE OF DISCHARGE: 08/31/2017 DISCHARGE DIAGNOSES: 1. Non-ST elevation myocardial infarction. 2. Coronary artery disease with 2 patent grafts out of 5, medical management. 3. Ischemic cardiomyopathy with ejection fraction of 35-40%. 4. Status post acute hypoxic respiratory failure secondary to #1, resolved. 5. Hypokalemia, mild. 6. Chronic kidney disease stage 3. 7. Diabetes mellitus type 2, insulin requiring. 8. Hypertension. CONSULTATIONS: Dr. Dickinson and [place] with Cardiology Service. Dr. Jerez with Pulmonology Service. PERTINENT LABORATORY AND X-RAY FINDINGS: Potassium ranged between 2.9-3.3, creatinine ranged between 1.11-1.37. Estimated GFR ranged between 50-64, troponin I ranged between 0.78-1.5. Lactic acid lev el ranged between 1.3-1.9, BNP 2374, total cholesterol 83, triglycerides 91, HDL 29, LDL 36. CBC jose carlos wed a white blood cell count ranging between 10.7-15.5, hemoglobin ranged between 10.4-12.6. A 2D tr ansthoracic echocardiogram dated 08/28/2017 showed ejection fraction of 35-40%. Lateral wall akinesi s. Inferior wall with severe hypokinesis. Mild aortic stenosis. Moderate tricuspid valve regurgita tion. Left heart catheterization dated 08/31/2017 showed patent 2 out of 5 grafts. HOSPITAL COURSE: Patient was initially admitted to the Critical Care Unit after presenting with acut e hypoxic respiratory failure and chest pain with associated troponin I elevation concerning for non- ST elevation myocardial infarction. Patient was initially managed for potential infectious process a fter initial temperature was noted at 101 degrees Fahrenheit. Patient received IV Rocephin and Zithr omax as well as aspirin and nitroglycerin after cardiac enzymes were noted elevated. Patient was als o placed on BiPAP noninvasive mechanical ventilation due to hypoxic respiratory failure in the contex t of a non-ST elevation myocardial infarction. Patient was rapidly we[facility] and placed on oxygen by nasal cannula and evaluated by the Cardiology Service. Juan Ramon ferreira was taken for left heart catheterization on 08/31/2017 showing patent 2 out of five grafts with recommendations for medical management. Patient also received Lasix as well as potassium supplement ation after ejection fraction was noted at 35-40%. Patient overall remained clinically stable post-c ardiac catheterization, ambulating without assistance or difficulty with stable vital signs at the ti me of discharge. Patient is overall stable and ready for discharge on 08/31/2017. DISCHARGE MEDICATIONS: 1. Amlodipine 5 mg one tablet p.o. daily. 2. Enteric coated aspirin 81 mg 1 tab p.o. daily. 3. Coreg 25 mg p.o. b.i.d. 4. Plavix 75 mg 1 tab p.o. daily. 5. Lasix 40 mg p.o. daily. 6. NovoLog 70/30 of 20 units subcutaneously q.a.m. and 10 units subcutaneously at bedtime. 7. Lisinopril 20 mg p.o. b.i.d. 8. Metformin 500 mg p.o. b.i.d., hold until 09/02/2017. 9. Zocor 20 mg p.o. at bedtime. FOLLOWUP: Patient will follow up with Dr. Eduardo Crowell within 7 days of discharge. Patient will f ollow up with Dr. Lashon Rand and to call his office for appointment time and date. CONDITION ON DISCHARGE: Stable. ACTIVITY: Ad johan. DIET: Heart healthy and ADA. CODE STATUS: FULL. DISPOSITION: Home, 08/31/2017.
[2017-08-31] MEDS: Famotidine 20 MG TAB PO SCH (21:17)
[2017-08-31] MEDS: Simvastatin 20 MG TAB PO SCH (21:17)
[2017-08-31] MEDS ORDERED: Insulin NPH/Reg Insulin Hm 300 UNITS/3 ML VIAL SC SCH (22:00)
--- NOTE | 2017-08-31 22:55 | PDOC.PN ---
- Subjective Encounter Start Date: 08/31/17 Encounter Start Time: 15:00 Subjective: f/u for NSTEMI and post LHC showing 2 patent main grafts with -: recommendations for med mgmt. No CP, SOB or fever. - Objective Resuscitation Status: Resuscitation Status FULL:Full Resuscitation MAR Reviewed: Yes Vital Signs & Weight: Vital Signs (12 hours) Temp Pulse Resp BP BP Pulse Ox 08/31/17 21:17 133/70 08/31/17 19:17 98.3 F 57 L 15 133/70 98 08/31/17 16:09 98.2 F 80 15 142/70 H 95 08/31/17 11:33 97.7 F 76 18 164/79 H 92 L Weight Admit Weight 140 lb 3.424 oz Weight 134 lb 12.8 oz Most Recent Monitor Data Heart Rate from ECG 70 NIBP 140/80 NIBP BP-Mean 89 Respiration from ECG 17 SpO2 96 I&O: 08/30/17 08/31/17 09/01/17 06:59 06:59 06:59 Intake Total 4552 439 Output Total 2058 535 1225 Balance 1897 -535 -786 Result Diagrams: 08/29/17 04:10 08/31/17 04:37 Additional Labs: Accuchecks 08/31/17 08/31/17 08/31/17 21:15 16:44 10:48 POC Glucose 384 H 416 H 407 H 08/31/17 08/30/17 05:37 21:45 POC Glucose 202 H 223 H Laboratory Tests 08/28/17 08/28/17 08/28/17 00:31 04:10 04:19 WBC 15.5 H Hgb 12.6 L Band Neuts % (Manual) 24 H Potassium Creatinine Estimated GFR (MDRD) Magnesium 1.8 Troponin I 1.494 H* B-Natriuretic Peptide 08/28/17 08/28/17 08/28/17 04:19 04:19 11:38 WBC Hgb Band Neuts % (Manual) Potassium 2.9 L* Creatinine 1.37 H Estimated GFR (MDRD) Magnesium Troponin I 0.775 H* B-Natriuretic Peptide 2373.8 H 08/28/17 08/28/17 08/29/17 16:38 16:38 04:10 WBC Hgb Band Neuts % (Manual) Potassium 3.0 L 3.1 L Creatinine 1.32 H Estimated GFR (MDRD) 52 Magnesium 2.0 Troponin I 0.827 H* B-Natriuretic Peptide 08/30/17 04:45 WBC Hgb Band Neuts % (Manual) Potassium 2.9 L* Creatinine Estimated GFR (MDRD) 54 Magnesium Troponin I B-Natriuretic Peptide Radiology Reviewed by me: Yes (LHC - patent grafts 2 out 5) EKG Reviewed by me: Yes (Tele - SR) Phys Exam - Physical Examination Constitutional: NAD HEENT: PERRLA, oral pharynx no lesions Neck: no JVD, supple Respiratory: no wheezing, clear to auscultation bilateral Cardiovascular: RRR Gastrointestinal: soft, non-tender, no distention, positive bowel sounds Neurological: normal sensation, moves all 4 limbs Psychiatric: A&O x 3 Skin: normal turgor, cap refill <2 seconds Dx/Plan (1) NSTEMI (non-ST elevated myocardial infarction) Code(s): I21.4 - NON-ST ELEVATION (NSTEMI) MYOCARDIAL INFARCTION Status: Acute Comment: Continue ASA and Plavix, Coreg, med mgmt per Cardiology (2) Cardiomyopathy Code(s): I42.9 - CARDIOMYOPATHY, UNSPECIFIED Status: Chronic Comment: EF 35- 40%, Lasix 40mg po daily, Lisinopril 20mg BID (3) Acute respiratory failure with hypoxia Code(s): J96.01 - ACUTE RESPIRATORY FAILURE WITH HYPOXIA Status: Acute Comment: Resolved, NC prn (4) Hypokalemia Code(s): E87.6 - HYPOKALEMIA Status: Acute Comment: Persistent, KCL replacement, repeat K+ level in am (5) CKD (chronic kidney disease) stage 3, GFR 30-59 ml/min Code(s): N18.3 - CHRONIC KIDNEY DISEASE, STAGE 3 (MODERATE) Status: Chronic Comment: Appears to be baseline renal function (6) DM II (diabetes mellitus, type II), controlled Code(s): E11.9 - TYPE 2 DIABETES MELLITUS WITHOUT COMPLICATIONS Status: Chronic Comment: ISS, ADA, hold Metformin post cath x 48h (7) HTN (hypertension) Code(s): I10 - ESSENTIAL (PRIMARY) HYPERTENSION Status: Chronic Qualifiers: Hypertension type: essential hypertension Qualified Code(s): I10 - Essential (primary) hypertension Comment: Continue Coreg, Norvasc, Lisinopril - Plan plan discussed w/ family, out of bed/ambulate, DVT proph w/SCDs Stable overall -: Continue med mgmt for CAD per Cardiology -: OOB/ambulate -: Saline Lock IVF's -: Plan for d/c today * .
[2017-09-01] MEDS: Nitroglycerin 2% Ointment 1 INCH/1 GM Packet TOP SCH ×2 (06:13→14:41)
[2017-09-01] MEDS: Carvedilol 25 MG TAB PO SCH ×2 (08:58→16:29)
[2017-09-01] MEDS: Amlodipine 5 MG TAB PO SCH (08:58)
[2017-09-01] MEDS: Cefdinir 300 MG CAP PO SCH (08:59)
[2017-09-01] MEDS: Multivitamin W/ Minerals 1 TAB PO SCH (08:59)
[2017-09-01] MEDS: guaiFENesin ER 600 MG TAB PO SCH (08:59)
[2017-09-01] MEDS: Ubidecarenone 50 MG CAP PO SCH (08:59)
[2017-09-01] MEDS: Lisinopril 20 MG TAB PO SCH (08:59)
[2017-09-01] MEDS: Clopidogrel Bisulfate 75 MG TAB PO SCH (08:59)
[2017-09-01] MEDS ORDERED: Enoxaparin Sodium 30 MG/0.3 ML SYRINGE SC SCH (09:00)
[2017-09-01] MEDS ORDERED: Aspirin 325 MG TAB PO SCH (09:00)
[2017-09-01] MEDS ORDERED: Insulin NPH/Reg Insulin Hm 300 UNITS/3 ML VIAL SC SCH ×2 (09:00→21:00)
--- NOTE | 2017-09-01 13:53 | PDOC.PN ---
- Subjective Encounter Start Date: 09/01/17 Encounter Start Time: 13:51 Mr. Mei was seen today in follow-up. He is feeling better today. The events of last night were noted. - Objective Resuscitation Status: Resuscitation Status FULL:Full Resuscitation MAR Reviewed: Yes Vital Signs & Weight: Vital Signs (12 hours) Temp Pulse Pulse Pulse Resp BP BP 09/01/17 11:45 98.0 F 73 16 09/01/17 11:05 70 73 144/70 H 179/81 H 09/01/17 08:10 98.2 F 74 16 09/01/17 08:00 98.2 F 74 16 09/01/17 02:56 98.2 F 67 16 09/01/17 02:10 100 09/01/17 02:05 106 H BP BP Pulse Ox Pulse Ox Pulse Ox 09/01/17 11:45 132/64 100 09/01/17 11:05 92 L 94 L 09/01/17 08:10 139/65 90 L 09/01/17 08:00 09/01/17 02:56 114/61 91 L 09/01/17 02:10 133/76 09/01/17 02:05 139/92 H Weight Admit Weight 140 lb 3.424 oz Weight 134 lb 12.8 oz Most Recent Monitor Data Heart Rate from ECG 70 NIBP 140/80 NIBP BP-Mean 89 Respiration from ECG 17 SpO2 96 I&O: 08/31/17 09/01/17 09/02/17 06:59 06:59 06:59 Intake Total 1339 Output Total 535 1975 Balance -535 -636 Result Diagrams: 08/29/17 04:10 08/31/17 04:37 Additional Labs: Accuchecks 09/01/17 09/01/17 09/01/17 12:09 09:09 06:34 POC Glucose 236 H 259 H 173 H 09/01/17 09/01/17 08/31/17 05:40 01:57 23:57 POC Glucose 70 195 H 312 H 08/31/17 08/31/17 21:15 16:44 POC Glucose 384 H 416 H Phys Exam - Physical Examination HEENT: PERRLA Respiratory: no wheezing, no rales, no rhonchi, clear to auscultation bilateral Cardiovascular: RRR, no significant murmur Gastrointestinal: soft, non-tender, positive bowel sounds Musculoskeletal: no edema Dx/Plan (1) Acute respiratory failure with hypoxia Code(s): J96.01 - ACUTE RESPIRATORY FAILURE WITH HYPOXIA Status: Acute Comment: Resolved, NC prn (2) NSTEMI (non-ST elevated myocardial infarction) Code(s): I21.4 - NON-ST ELEVATION (NSTEMI) MYOCARDIAL INFARCTION Status: Acute Comment: Continue ASA and Plavix, Coreg, med mgmt per Cardiology (3) DM II (diabetes mellitus, type II), controlled Code(s): E11.9 - TYPE 2 DIABETES MELLITUS WITHOUT COMPLICATIONS Status: Chronic Comment: ISS, ADA, hold Metformin post cath x 48h (4) HTN (hypertension) Code(s): I10 - ESSENTIAL (PRIMARY) HYPERTENSION Status: Chronic Qualifiers: Hypertension type: essential hypertension Qualified Code(s): I10 - Essential (primary) hypertension Comment: Continue Coreg, Norvasc, Lisinopril - Plan * Urinary retention- likely due to medications- will send home with a leg bag, and have an Outpatient Urology evaluation * HTN- blood pressure has been a bit labile- will monitor * PAF- discussed with Dr. Rand- he recommends discontinuing Plavix, and starting low dose Eliquis * Stable for discharge home today.
--- NOTE | 2017-09-01 14:19 | PRG ---
DATE OF SERVICE: 09/01/2017 Mr. Mei is doing better today. He wishes to go home. He did have urinary retention last night a nd Issa catheter had to be placed. He tells me this has happened before. PHYSICAL EXAMINATION: VITAL SIGNS: Blood pressure 144/70, pulse 70. LUNGS: Clear. CARDIAC: Normal S1, normal S2. ASSESSMENT: 1. Coronary disease, best treated medically. 2. Atrial fibrillation. We started him on a Eliquis 2.5 mg twice a day. He is over age 81 and weig hs 60 kilograms. His creatinine was also high on admission, I recommended a lower dose. PLAN: 1., Stop Plavix. 2. Aspirin 81 mg daily. 3. Furosemide 40 mg a day. 4. Lisinopril resume previous dose. 5. Potassium 10 mEq a day. 6. Start Eliquis in 2 days.
[2017-09-01] MEDS: Furosemide 40 MG TAB PO SCH (15:15)
[2017-09-01 16:01] VITALS: BP 162/79; TEMP 98.1
[2017-09-02] MEDS ORDERED: Potassium Chloride 10 MEQ TAB PO SCH (08:00)
[2017-09-03] MEDS ORDERED: Apixaban 5 MG TAB PO SCH (09:00)
--- NOTE | 2017-09-06 16:28 | EKG ---
Test Reason : STAT Blood Pressure : / mmHG Vent. Rate : 093 BPM Atrial Rate : 093 BPM P-R Int : 122 ms QRS Dur : 112 ms QT Int : 384 ms P-R-T Axes : 013 -34 042 degrees QTc Int : 477 ms Normal sinus rhythm with sinus arrhythmia Left axis deviation Nonspecific ST and T wave abnormality Prolonged QT Abnormal ECG No previous ECGs available Confirmed by Vivi LAW ([id number]) on 09/06/2017 4:27:52 PM Referred By: MIKE Confirmed By:Vivi LAW
== END 2017-09-01 17:11 | disposition home or self-care (01) | DRG 280 ==
LOC: ERS 23:15 → 2NO 08-28 02:40 → CCU 08-28 04:20 → 2SW 08-30 17:16
PROVIDERS: ADMIT Internal Medicine; ATTEND Internal Medicine
PROC: 4A023N7 Measurement of Cardiac Sampling and Pressure, Left Heart, Percutaneous Approach (ICD-10-PCS; principal; 2017-08-31)
PROC: B2131ZZ Fluoroscopy of Multiple Coronary Artery Bypass Grafts using Low Osmolar Contrast (ICD-10-PCS; 2017-08-31)
PROC: B2111ZZ Fluoroscopy of Multiple Coronary Arteries using Low Osmolar Contrast (ICD-10-PCS; 2017-08-31)
DX: I21.4 Non-ST elevation (NSTEMI) myocardial infarction (principal); J18.9 Pneumonia, unspecified organism; J96.01 Acute respiratory failure with hypoxia; I50.23 Acute on chronic systolic (congestive) heart failure; E11.22 Type 2 diabetes mellitus with diabetic chronic kidney disease; E83.42 Hypomagnesemia; I07.1 Rheumatic tricuspid insufficiency; I13.0 Hypertensive heart and chronic kidney disease with heart failure and stage 1 through stage 4 chronic kidney disease, or unspecified chronic kidney disease; I48.91 Unspecified atrial fibrillation; D64.9 Anemia, unspecified; N18.3 Chronic kidney disease, stage 3 (moderate); G30.9 Alzheimer's disease, unspecified; F02.80 Dementia in other diseases classified elsewhere, unspecified severity, without behavioral disturbance, psychotic disturbance, mood disturbance, and anxiety; Z95.1 Presence of aortocoronary bypass graft; Z79.01 Long term (current) use of anticoagulants; Z79.82 Long term (current) use of aspirin; I25.10 Atherosclerotic heart disease of native coronary artery without angina pectoris; H40.9 Unspecified glaucoma; K21.9 Gastro-esophageal reflux disease without esophagitis; N40.0 Benign prostatic hyperplasia without lower urinary tract symptoms; Z87.891 Personal history of nicotine dependence; E87.6 Hypokalemia; R33.9 Retention of urine, unspecified; I25.5 Ischemic cardiomyopathy; I35.0 Nonrheumatic aortic (valve) stenosis; Z79.4 Long term (current) use of insulin; I25.2 Old myocardial infarction; Z85.820 Personal history of malignant melanoma of skin; T50.905A Adverse effect of unspecified drugs, medicaments and biological substances, initial encounter
CPT/HCPCS: 36415; 36416; 71045; 76942; 80048; 80053; 80061; 82553; 83605; 83735; 83880; 84484; 85025; 93005; 93010; 93306; 93455; 93798; 94660; 99285; A4216; C1769; J0360; J0696; J1642; J1644; J1650; J1940; J1956; J3010; J3475; J3480; J7050

== ENCOUNTER 2017-12-30 10:07 | Outpatient (CLI) | payer MEDICARE ==
[2017-12-30 11:58] LABS: Hemoglobin 12.2 g/dL (14.0-18.0); Mean Corpuscular HGB CONC 33.5 g/dL (32.0-36.0); Mean Corpuscular Hemoglobin 32.9 pg (27.0-31.0); Platelet Count 177 thou/uL (130-400); RBC Distribution Width 12.3 % (11.5-14.5); White Blood Cell (WBC) Count 6.3 thou/uL (4.8-10.8)
[2017-12-30 12:18] LABS: Anion Gap 9 mmol/L (10-20); BUN (Urea Nitrogen) 21 mg/dL (8.4-25.7); Calc. Creatinine Clearance 0 mL/min (70-130); Calcium 8.8 mg/dL (7.8-10.44); Carbon Dioxide 26 mmol/L (23-31); Chloride 107 mmol/L (98-107); Estimated GFR-MDRD 44; Glucose 124 mg/dL (83-110); Potassium 3.2 mmol/L (3.5-5.1); Sodium 139 mmol/L (136-145)
[2017-12-30 12:21] LABS: INR-International Normal Ratio 1.3; Prothrombin Time 16.9 SEC (12.0-14.7)
== END 2017-12-30 10:08 | disposition home or self-care (01) ==
LOC: LABBT 10:07
PROVIDERS: ATTEND Surgery
DX: Z01.818 Encounter for other preprocedural examination (principal); M48.061 Spinal stenosis, lumbar region without neurogenic claudication; M54.16 Radiculopathy, lumbar region; M71.38 Other bursal cyst, other site
CPT/HCPCS: 80048; 85027; 85610; 85730; 93005; 93010

== ENCOUNTER 2017-12-30 10:15 | Inpatient (IN) | payer MEDICARE ==
[2017-12-30 10:23] VITALS: BMI 19.1
[2018-01-07] MEDS ORDERED: Insulin Regular 300 UNITS/3 ML VIAL ONE (09:26)
[2018-01-07] MEDS ORDERED: Sodium Chloride 0.9% 10 ML ONE (09:30)
[2018-01-07] MEDS ORDERED: Thrombin 5000 UNITS/5 ML VIAL ONE (09:30)
[2018-01-07] MEDS ORDERED: Bacitracin Zinc Ointment 30 gm TUBE ONE (09:30)
[2018-01-07] MEDS ORDERED: CEFAZOLIN/Water 2 GM/20 ML SYRINGE ONE (09:47)
[2018-01-07] MEDS ORDERED: Fentanyl 250 MCG/5 ML VIAL ONE (10:06)
[2018-01-07] MEDS ORDERED: ePHEDrine/0.9% NaCl/PF SYRINGE 50 mg/10 ml ONE ×2 (11:33→15:16)
--- NOTE | 2018-01-07 12:46 | OP ---
DATE OF PROCEDURE: 01/07/2018 OR: 12 WOUND TYPE: Type 1 wound. SURGEON: Fernie Solomon M.D. COSTUMED CHARACTER ENTERTAINER: Elan Pardo PA-C. PREPROCEDURE DIAGNOSES: Multilevel lumbar stenosis with scoliosis and L3-L4 spondylolisthesis with s ynovial cyst resulting in low back and leg pain and weakness with neurogenic claudication. POSTPROCEDURE DIAGNOSES: Multilevel lumbar stenosis with scoliosis and L3-L4 spondylolisthesis with synovial cyst resulting in low back and leg pain and weakness with neurogenic claudication. PROCEDURES: 1. L2-L3, L3-L4 laminectomies, partial facetectomies and foraminotomies over the L2, L3, L4 nerve ro ots. 2. L4-L5 synovial cyst resection. 3. In situ fusion posterolaterally L3-L4 to stabilize spondylolisthesis at L3-L4 with use of local b one autograft obtained from same incision and allograft. DESCRIPTION OF PROCEDURE: After informed consent was obtained from the patient, the patient brought to OR 12. Proper patient pause and identification was carried out. He was placed in excellent gener al endotracheal anesthesia and positioned prone on the OR table. All appropriate points were padded. We identified the L2, L3, L4, L5 dorsal spines and a linear incision was drawn out. This region wa s sterilely cleansed, prepared and draped. Proper patient pause and identification was carried out. The wound was then opened with a combination of sharp, monopolar and blunt dissection and the L2, L3 , L4, L5 dorsal spines and lamina were exposed. Localization film confirmed our area of interest. W e then performed L2-L3, L3-L4 laminectomies, partial facetectomies and foraminotomies over the L2, L3 , L4 nerve roots. I expected to encounter a synovial cyst based on the preoperative MRI at the L3-L4 segment on the left side, but interestingly the synovial cyst was at the L4-L5 segment although he d id not have a concerning spondylolisthesis on his preoperative x-rays and as such at the L4-L5 segmen t, I resected the left-sided L4-L5 synovial cyst and assured freedom of the right L4 and right L5 ner ve roots as well. I then turned my attention to decortication of posterior regions at L3-L4 and auto graft obtained from same incision. Allograft was laid over this region for in situ fusion for stabil ization of the patient's spondylolisthesis. Copious irrigation occurred throughout as did maximizing hemostasis. The wound was then closed in anatomic layers following sprinkling of vancomycin powder. I should note there was no spinal fluid leak. The patient then emerged from anesthesia.
[2018-01-07] MEDS ORDERED: Mag-Al 1200 mg/1200 mg/30 ML UDCUP PO PRN (13:08)
[2018-01-07] MEDS ORDERED: traMADol HCl 50 MG TAB PO PRN (13:08)
[2018-01-07] MEDS ORDERED: Fleet Enema 133 ML BOT PR PRN (13:08)
[2018-01-07] MEDS ORDERED: tiZANidine HCl 4 MG TAB PO PRN (13:08)
[2018-01-07] MEDS ORDERED: Bisacodyl 10 MG SUPP PR PRN (13:08)
[2018-01-07] MEDS ORDERED: Milk Of Magnesia 30 ML UDCUP PO PRN (13:08)
[2018-01-07] MEDS ORDERED: Promethazine HCl 25 MG/ML VIAL IM PRN (13:08)
[2018-01-07] MEDS ORDERED: Acetaminophen/Codeine 30-300mg Tablet PO PRN (13:08)
[2018-01-07] MEDS ORDERED: HYDROcodone/Acetaminophen 7.5/325 mg Tablet PO PRN (13:08)
[2018-01-07] MEDS ORDERED: Lidocaine 1% PF 5 ML VIAL ONE (15:16)
[2018-01-07] MEDS ORDERED: PROPOFOL 200 MG/20 ML VIAL ONE (15:16)
[2018-01-07] MEDS ORDERED: Glycopyrrolate 0.2 MG/ML 5 ML SYRINGE ONE (15:16)
[2018-01-07] MEDS ORDERED: Ondansetron HCl/PF 4 MG/2 ML Vial ONE (15:16)
[2018-01-07] MEDS: Sodium Chloride 0.9% 1,000 ML IV SCH (17:17)
[2018-01-07] MEDS ORDERED: Dextrose 50% Abboject 50 ML SYRINGE ONE (17:25)
[2018-01-07 17:34] LABS: Glucose 40 mg/dL (83-110)
[2018-01-07] MEDS: Dextrose 50% Abboject 50 ML SYRINGE ONE ×2 (17:36→19:24)
[2018-01-07] MEDS: CEFAZOLIN/Water 2 GM/20 ML SYRINGE SLOW IVP SCH (17:57)
[2018-01-07] MEDS ORDERED: Dextrose 50% Abboject 50 ML SYRINGE SLOW IVP SCH ×2 (19:00→19:30)
[2018-01-07] MEDS: Lisinopril 20 MG TAB PO SCH (21:13)
[2018-01-07] MEDS: Carvedilol 25 MG TAB PO SCH (21:14)
[2018-01-07] MEDS: Atorvastatin Calcium 20 MG TAB PO SCH (21:14)
[2018-01-07] MEDS ORDERED: Tamsulosin HCl 0.4 MG CAP PO SCH (21:45)
--- NOTE | 2018-01-07 21:45 | PDOC.EVN ---
Event Note - Event Note Event Note: RN called - Pt has urinary retention. Will try Flomax. Urine cath PRN. Issa if needed later
[2018-01-08] MEDS: CEFAZOLIN/Water 2 GM/20 ML SYRINGE SLOW IVP SCH (03:04)
[2018-01-08] MEDS: Sodium Chloride 0.9% 1,000 ML IV SCH ×2 (04:42→19:30)
[2018-01-08] MEDS: Lisinopril 20 MG TAB PO SCH ×2 (08:47→21:57)
[2018-01-08] MEDS: Ubidecarenone 50 MG CAP PO SCH (08:48)
[2018-01-08] MEDS: Acetaminophen 325 MG TAB PO PRN ×2 (08:48→14:12)
[2018-01-08] MEDS: Furosemide 40 MG TAB PO SCH (08:48)
[2018-01-08] MEDS: Carvedilol 25 MG TAB PO SCH ×2 (08:48→21:58)
[2018-01-08] MEDS: Potassium Chloride 10 MEQ TAB PO SCH (08:48)
[2018-01-08] MEDS: Multivit, Therapeutic 1 TAB PO SCH (08:48)
[2018-01-08] MEDS ORDERED: INSULIN GLARGINE HUM REC ANLOG 28 UNIT SC SCH (09:00)
[2018-01-08] MEDS: Insulin Glargine 22 UNITS in Pre-Filled Syringe 1 EACH SC SCH ×2 (09:34→11:10)
[2018-01-08] MEDS ORDERED: Dextrose 5% in Water 1,000 ML IV PRN (11:06)
[2018-01-08] MEDS ORDERED: HumaLOG 300 UNITS/3 ML VIAL SC PRN (11:06)
[2018-01-08] MEDS ORDERED: Dextrose 50% Abboject 50 ML SYRINGE SLOW IVP PRN (11:06)
--- NOTE | 2018-01-08 11:12 | PRG ---
DATE OF SERVICE: 01/08/2018 Mr. Mei is postoperative day 1 from multilevel lumbar decompression and in situ fusion. The jesse ent states his legs certainly feel better compared to before surgery. He has not yet mobilized in hallway. We will work on that. We are also working on pain control involving his postoperative pa in in the incision region. I have educated him in regards to good posture. His strength is good and we will maximize physiatry while he is here, perhaps he would be a good candidate for inpatient reha bilitation. Our medical colleagues are following along and I appreciate their care in regards to his fluctuating glycemic control.
--- NOTE | 2018-01-08 12:53 | PDOC.PN ---
- Subjective Encounter Start Date: 01/08/18 Encounter Start Time: 10:30 follow up for DM, HTN, HLD, s/p corona and fusion, POD 1. Pt doing okay, pain with walking, D/C held due to pt need for IPR no f/C,no N/V/D/c, eating well. Surgars high re-op, post op, then dropped. insulin held, and now in 400s, resumes, SSI added all systems reviewed and neg x as above - Objective MAR Reviewed: Yes Vital Signs & Weight: Vital Signs (12 hours) Temp Pulse Resp BP BP Pulse Ox 01/08/18 11:38 98.2 F 66 16 106/63 95 01/08/18 08:47 115/66 01/08/18 08:00 98.6 F 72 18 95 01/08/18 07:25 98.6 F 72 18 115/66 95 01/08/18 04:00 97.9 F 68 16 154/79 H 96 Weight Weight 126 lb I&O: 01/07/18 01/08/18 01/09/18 06:59 06:59 06:59 Intake Total 1115 Output Total 980 525 Balance -980 590 Result Diagrams: 01/07/18 17:08 Additional Labs: Accuchecks 01/08/18 01/07/18 01/07/18 11:02 21:09 18:27 POC Glucose 476 H 165 H 136 H 01/07/18 01/07/18 01/07/18 16:53 16:07 13:13 POC Glucose 43 L* 47 L* 98 01/07/18 01/07/18 10:03 09:15 POC Glucose 293 H 333 H Phys Exam - Physical Examination Constitutional: NAD HEENT: PERRLA, moist MMs, sclera anicteric, oral pharynx no lesions Neck: no nodes, no JVD, supple, full ROM Respiratory: no wheezing, no rales, no rhonchi, clear to auscultation bilateral Cardiovascular: no significant murmur, no rub, irregular Gastrointestinal: soft, non-tender, no distention, positive bowel sounds Musculoskeletal: no edema Neurological: non-focal, normal sensation, moves all 4 limbs Lymphatic: no nodes Psychiatric: normal affect, A&O x 3 Skin: no rash, normal turgor, cap refill <2 seconds Dx/Plan (1) CKD (chronic kidney disease) stage 3, GFR 30-59 ml/min Code(s): N18.3 - CHRONIC KIDNEY DISEASE, STAGE 3 (MODERATE) Status: Chronic Comment: Appears to be baseline renal function (2) Cardiomyopathy Code(s): I42.9 - CARDIOMYOPATHY, UNSPECIFIED Status: Chronic Qualifiers: Cardiomyopathy type: ischemic Qualified Code(s): I25.5 - Ischemic cardiomyopathy Comment: EF 35-40%, Lasix 40mg po daily, Lisinopril 20mg BID (3) DM II (diabetes mellitus, type II), controlled Code(s): E11.9 - TYPE 2 DIABETES MELLITUS WITHOUT COMPLICATIONS Status: Chronic Qualifiers: Diabetes mellitus halfway insulin use: with halfway use Diabetes mellitus complication status: without complication Qualified Code(s): E11.9 - Type 2 diabetes mellitus without complications; Z79.4 - custodial (current) use of insulin; Z79.4 - custodial (current) use of insulin; Z79.4 - rn long term care ( current) use of insulin; Z79.4 - rn long term care (current) use of insulin Comment: ISS, ADA, hold Metformin post cath x 48h (4) HTN (hypertension) Code(s): I10 - ESSENTIAL (PRIMARY) HYPERTENSION Status: Chronic Qualifiers: Hypertension type: essential hypertension Qualified Code(s): I10 - Essential (primary) hypertension Comment: Continue Coreg, Norvasc, Lisinopril - Plan cont current plan of care, PT/OT, out of bed/ambulate * . restart long acting insulin, mild and HS SSI with humalog
[2018-01-08] MEDS: HumaLOG 300 UNITS/3 ML VIAL SC PRN (15:53)
[2018-01-08] MEDS ORDERED: Tamsulosin HCl 0.4 MG CAP PO SCH (21:00)
[2018-01-08] MEDS: Atorvastatin Calcium 20 MG TAB PO SCH (21:57)
[2018-01-09 05:00] LABS: #Eosinphils 0.1 thou/uL (0.0-0.7); #Lymphocytes 0.9 thou/uL (1.20-3.40); #Monocytes 1.3 thou/uL (0.11-0.59); #Neutrophils 9.1 thou/uL (1.40-6.50); %Basophils 0.1 % (0.0-1.0); %Eosinophils 0.9 % (0.0-10.0); %Lymphocytes 7.9 % (21.0-51.0); %Monocytes 11.5 % (0.0-10.0); %Neutrophils 79.7 % (42.0-75.0); Hemoglobin 11.2 g/dL (14.0-18.0); Mean Corpuscular Hemoglobin 31.7 pg (27.0-31.0); Mean Platelet Volume 7.8 fL (7.4-10.4); Platelet Count 156 thou/uL (130-400); RBC Distribution Width 12.3 % (11.5-14.5); Red Blood Cell (RBC) Count 3.52 mill/uL (4.70-6.10); White Blood Cell (WBC) Count 11.5 thou/uL (4.8-10.8)
[2018-01-09 05:13] LABS: Anion Gap 12 mmol/L (10-20); BUN (Urea Nitrogen) 19 mg/dL (8.4-25.7); Calc. Creatinine Clearance 35 mL/min (70-130); Calcium 8.5 mg/dL (7.8-10.44); Carbon Dioxide 25 mmol/L (23-31); Chloride 104 mmol/L (98-107); Estimated GFR-MDRD 51; Glucose 172 mg/dL (83-110); Magnesium 1.7 mg/dL (1.6-2.6); Potassium 3.3 mmol/L (3.5-5.1); Sodium 138 mmol/L (136-145)
[2018-01-09] MEDS: Sodium Chloride 0.9% 1,000 ML IV SCH (06:20)
--- NOTE | 2018-01-09 09:35 | PRG ---
DATE OF SERVICE: 01/09/2018 NEUROSURGERY NOTE SUBJECTIVE: Mr. Mei is 2 days out from decompression of the lumbar spine and removal of synovial cyst. His legs actually feel quite good. He is ambulatory and made it all the way down the [place], b ack to his room and then down the dixon the other way and back to his room yesterday. It is quite a g ood walk. His vital signs show a blood pressure that was high this morning around midnight in the 19 0s. T-max of 99.6. On examination, I do not find any new deficits in lower extremities. Mr. Mei was continuing inpatient rehabilitation, but given his ambulatory status, he may be doing too well for inpatient rehabilitation. We will see what the physical therapy team thinks today. If he would not benefit from inpatient therapy, he can be discharged as early as today. Followup arran gements will be made with Dr. Solomon.
[2018-01-09] MEDS: Multivit, Therapeutic 1 TAB PO SCH (09:36)
[2018-01-09] MEDS: Lisinopril 20 MG TAB PO SCH (09:36)
[2018-01-09] MEDS: Potassium Chloride 10 MEQ TAB PO SCH (09:36)
[2018-01-09] MEDS: Ubidecarenone 50 MG CAP PO SCH (09:36)
[2018-01-09] MEDS: Furosemide 40 MG TAB PO SCH (09:36)
[2018-01-09] MEDS: Carvedilol 25 MG TAB PO SCH (09:36)
[2018-01-09] MEDS: Insulin Glargine 22 UNITS in Pre-Filled Syringe 1 EACH SC SCH (09:37)
[2018-01-09] MEDS: HumaLOG 300 UNITS/3 ML VIAL SC PRN ×2 (09:42→13:18)
[2018-01-09] MEDS: Acetaminophen 325 MG TAB PO PRN (09:53)
[2018-01-09 12:45] VITALS: BP 125/67; TEMP 98.6
[2018-01-09] MEDS ORDERED: Potassium Chloride 10 MEQ TAB PO SCH (13:00)
== END 2018-01-09 14:39 | disposition home or self-care (01) | DRG 460 ==
LOC: SURG A 01-07 08:20 → SURG B 01-07 14:21
PROVIDERS: ADMIT Surgery; ATTEND Surgery
PROC: 0SG0071 Fusion of Lumbar Vertebral Joint with Autologous Tissue Substitute, Posterior Approach, Posterior Column, Open Approach (ICD-10-PCS; principal; 2018-01-07)
PROC: 01NB0ZZ Release Lumbar Nerve, Open Approach (ICD-10-PCS; 2018-01-07)
PROC: 0SB00ZZ Excision of Lumbar Vertebral Joint, Open Approach (ICD-10-PCS; 2018-01-07)
DX: M48.062 Spinal stenosis, lumbar region with neurogenic claudication (principal); I25.5 Ischemic cardiomyopathy; M43.16 Spondylolisthesis, lumbar region; M71.38 Other bursal cyst, other site; E78.5 Hyperlipidemia, unspecified; I12.9 Hypertensive chronic kidney disease with stage 1 through stage 4 chronic kidney disease, or unspecified chronic kidney disease; E11.22 Type 2 diabetes mellitus with diabetic chronic kidney disease; N18.3 Chronic kidney disease, stage 3 (moderate); M41.9 Scoliosis, unspecified; R33.9 Retention of urine, unspecified; Z79.82 Long term (current) use of aspirin; Z79.4 Long term (current) use of insulin; Z79.899 Other long term (current) drug therapy
CPT/HCPCS: 36415; 36416; 76001; 80048; 82947; 83735; 85025; A4216; G8978-GP-CL; G8979-GP-CJ; G8987-GO-CK; G8988-GO-CI; J1815; J2001; J2405; J2550; J2704; J3010; J3370; J3490

== ENCOUNTER 2018-08-05 07:21 | Outpatient (CLI) | payer MEDICARE ==
[2018-08-05 16:25] LABS: #Eosinphils 0.4 thou/uL (0.0-0.7); #Lymphocytes 1.2 thou/uL (1.20-3.40); #Monocytes 0.8 thou/uL (0.11-0.59); #Neutrophils 5.1 thou/uL (1.40-6.50); %Basophils 0.1 % (0.0-1.0); %Eosinophils 5.6 % (0.0-10.0); %Lymphocytes 16.2 % (21.0-51.0); %Monocytes 11.1 % (0.0-10.0); Hemoglobin 12.4 g/dL (14.0-18.0); Mean Corpuscular HGB CONC 33.2 g/dL (32.0-36.0); Mean Corpuscular Volume 99.5 fL (78.0-98.0); Mean Platelet Volume 8.5 fL (7.4-10.4); Platelet Count 209 thou/uL (130-400); RBC Distribution Width 12.2 % (11.5-14.5); Red Blood Cell (RBC) Count 3.76 mill/uL (4.70-6.10); White Blood Cell (WBC) Count 7.6 thou/uL (4.8-10.8)
[2018-08-05 16:30] LABS: INR-International Normal Ratio 1.2; PTT 33.1 SEC (22.9-36.1); Prothrombin Time 14.9 SEC (12.0-14.7)
[2018-08-05 16:49] LABS: Anion Gap 11 mmol/L (10-20); BUN (Urea Nitrogen) 19 mg/dL (8.4-25.7); Calc. Creatinine Clearance 0 mL/min (70-130); Calcium 8.7 mg/dL (7.8-10.44); Carbon Dioxide 30 mmol/L (23-31); Chloride 109 mmol/L (98-107); Estimated GFR-MDRD 51; Potassium 3.4 mmol/L (3.5-5.1); Sodium 147 mmol/L (136-145)
[2018-08-05 16:50] LABS: Glucose 42 mg/dL (83-110)
== END 2018-08-05 07:22 | disposition home or self-care (01) ==
LOC: LABBT 07:21
PROVIDERS: ATTEND Internal Medicine Cardiovascular Disease
DX: Z01.812 Encounter for preprocedural laboratory examination (principal); I50.9 Heart failure, unspecified
CPT/HCPCS: 80048; 85025; 85610; 85730

== ENCOUNTER 2018-08-12 07:49 | Observation (INO) | payer MEDICARE ==
[2018-08-05 14:26] VITALS: BMI 19.6
[2018-08-12] MEDS ORDERED: Phenylephrine HCL 10 MG/ML VIAL ONE (09:17)
[2018-08-12] MEDS ORDERED: Fentanyl 100 MCG/2 ML VIAL ONE ×2 (09:18→12:12)
[2018-08-12] MEDS ORDERED: Lidocaine 1% (PF) 30 ML VIAL ONE ×2 (09:18→10:13)
[2018-08-12] MEDS ORDERED: Propofol 500 MG/50 ML VIAL ONE (09:27)
[2018-08-12] MEDS ORDERED: CEFAZOLIN 2 GM/50 ML BAG ONE (10:12)
[2018-08-12] MEDS ORDERED: PROPOFOL 20 ML ONE (11:02)
[2018-08-12] MEDS ORDERED: Iopamidol 370 76% 50 ML VIAL FS ONE (11:04)
[2018-08-12] MEDS ORDERED: Promethazine HCl 25 MG/ML VIAL SLOW IVP PRN (11:43)
[2018-08-12] MEDS ORDERED: Promethazine HCl 25 MG/ML VIAL IM PRN (11:43)
[2018-08-12] MEDS ORDERED: Ondansetron HCl/PF 4 MG/2 ML Vial IVP PRN (11:43)
[2018-08-12] MEDS ORDERED: Acetaminophen 1,000 MG in Premix Bag 1 BAG IVPB SCH (11:45)
[2018-08-12] MEDS ORDERED: HumaLOG 300 UNITS/3 ML VIAL SC SCH (12:45)
--- NOTE | 2018-08-12 13:54 | RAD ---
CHEST ONE VIEW: History: Post AICD Placement. Comparison: 08-05-17 FINDINGS: Dual-lead AICD pacer in place. No pneumothorax. No focal consolidation. Multiple skin folds right hem ithorax. No acute osseous abnormality. IMPRESSION: Uncomplicated placement of AICD/pacer. POS: [facility]
[2018-08-12] MEDS ORDERED: PROPOFOL 200 MG/20 ML VIAL ONE (14:58)
[2018-08-12] MEDS ORDERED: PHENYLEPHRINE-NS 100 MCG/ML 10 ML SYRINGE ONE (14:58)
--- NOTE | 2018-08-12 17:16 | EKG ---
Blood Pressure : / mmHG Vent. Rate : 063 BPM Atrial Rate : 063 BPM P-R Int : 168 ms QRS Dur : 158 ms QT Int : 490 ms P-R-T Axes : 012 -76 -26 degrees QTc Int : 501 ms Normal sinus rhythm Right bundle branch block Left anterior fascicular block Bifascicular block Septal infarct , age undetermined Nonspecific ST-T changes Abnormal ECG When compared with ECG of 30-DEC-2017 11:02, (RBBB and left anterior fascicular block) is now Present Confirmed by DR. Gerhard BEAL ([id number]) on 08/12/2018 5:15:58 PM Referred By: [facility] Confirmed By:DR. Gerhard BEAL
[2018-08-12] MEDS ORDERED: hydrALAZINE 20 MG/ML VIAL ONE (17:21)
--- NOTE | 2018-08-12 18:01 | OP ---
DATE OF PROCEDURE: 08/12/2018 TYPE OF STUDY: Electrophysiology study report. REFERRING PHYSICIAN: Dr. Rand. REASON FOR PROCEDURE: Mr. Mei is here due to history of CHF and ischemic cardiomyopathy. LVEF, 35% to 40%. He has frequent PVCs and nonsustained ventricular tachycardia rounds on the monitor, here for EP study to evaluate ventricular arrhythmia risk and possible ICD implantation. DESCRIPTION OF PROCEDURE: The patient received propofol by Anesthesia specialist. The right femoral venous area was prepped, draped, and anesthetized using subcutaneous lidocaine. With ultrasound guidance, the right femoral vein was cannulated and a 6-Irish short sheath was introduced. Through this, a octapolar catheter was advanced to the right atrium, right ventricle, His bundle location , and pace mapping recording was performed at each location. Following findings were noted; baseline rhythm was sinus rhythm at 828 milliseconds. The baseline rhythm is sinus rhythm, cycle length was 828 milliseconds. MS 140 milliseconds, QRS 99 milliseconds, QT 410 milliseconds, HV 43 milliseconds. Sinus node recovery time was measured at 1140, corrected was about 300 milliseconds. AV Wenckebach cycle length was 330 milliseconds. No VA conduction was noted. AV compa ERP was measured at 600/290. No dual AV compa physiology was present. Burst atrial pacing induced nonsustained atrial flutter only, which self-terminated shortly. Following that , ventricular extrastimuli testing was performed using both 600 and 400 milliseconds drivetrains. Three ventricular extrastimuli were delivered after drivetrains, which gradually decremented to the refractory period. With 600, 260, 190, and 180 milliseconds drivetrains, we were able to induce sustained ventricular flutter, which was terminated at about 14 seconds due to hemodynamic insufficiency with external cardioversion. The patient tolerated the procedure well. No complications noted. 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 PLAN: Based on the MUSTT trial protocol, proceed with ICD implantation dual- chamber device. Atrial lead hence history of atrial arrhythmias. Job ID: [id number] [facility]
[2018-08-12] MEDS ORDERED: HumaLOG 300 UNITS/3 ML VIAL SC PRN (20:56)
[2018-08-12] MEDS ORDERED: Dextrose 5% in Water 1,000 ML IV PRN (20:56)
[2018-08-12] MEDS ORDERED: Dextrose 50% Abboject 50 ML SYRINGE IVP PRN (20:56)
[2018-08-12] MEDS ORDERED: Aspirin 81 mg Enteric Coated Tablet PO SCH (21:00)
[2018-08-12] MEDS ORDERED: Atorvastatin Calcium 20 MG TAB PO SCH (21:00)
[2018-08-12] MEDS: Lisinopril 20 MG TAB PO SCH (21:09)
[2018-08-12] MEDS: Carvedilol 6.25 MG TAB PO SCH (21:10)
[2018-08-12] MEDS: Multivit, Therapeutic 1 TAB PO SCH (21:10)
[2018-08-12] MEDS: Apixaban 2.5 MG TAB PO SCH (21:12)
[2018-08-13] MEDS: HumaLOG 300 UNITS/3 ML VIAL SC PRN ×2 (06:00→11:16)
[2018-08-13] MEDS ORDERED: Insulin Glargine 26 UNITS in Pre-Filled Syringe 1 EACH SC SCH (09:00)
[2018-08-13] MEDS ORDERED: Furosemide 40 MG TAB PO SCH (09:00)
[2018-08-13] MEDS ORDERED: Ubidecarenone 50 MG CAP PO SCH (09:00)
[2018-08-13] MEDS ORDERED: Potassium Chloride 10 MEQ TAB PO SCH (09:00)
[2018-08-13] MEDS: Lisinopril 20 MG TAB PO SCH (09:26)
[2018-08-13] MEDS: Apixaban 2.5 MG TAB PO SCH (09:27)
[2018-08-13] MEDS: Multivit, Therapeutic 1 TAB PO SCH (09:27)
[2018-08-13] MEDS: Carvedilol 6.25 MG TAB PO SCH (09:27)
[2018-08-13 12:21] VITALS: TEMP 97.8
[2018-08-13 16:11] VITALS: BP 164/72
--- NOTE | 2018-08-14 12:23 | DIS ---
DATE OF ADMISSION: 08/12/2018 DATE OF DISCHARGE: 08/13/2018 DATE OF DISCHARGE: From overnight observation is on 08/13/2018. CONDITION ON DISCHARGE: Stable. DIAGNOSES: 1. Chronic systolic heart failure. 2. Ischemic cardiomyopathy. 3. Ventricular tachycardia. 4. Paroxysmal atrial fibrillation, dual-chamber ICD implantation. PROCEDURES PERFORMED: Include EP study and dual-chamber ICD implantation. HISTORY OF PRESENT ILLNESS: Mr. Mei is a very pleasant 82-year-old gentleman with a history of chronic systolic heart failure, ischemic cardiomyopathy with severely reduced ejection fraction of 35% to 40%. He has frequent PVCs and nonsustained VT seen on monitor and was brought to the EP lab for an elective study to evaluate for ventricular arrhythmia risk and possible ICD implantation. He was found to be inducible for monomorphic ventricular tachycardia and ventricular flutter, and it was decided to proceed with a dual-chamber ICD implantation immediately following EP study. He received a Medtronic Evera XT DR as a subpectoral implant due to his very thin habitus. He was kept overnight for observation. He has had an uncomplicated recovery. His vital signs have remained stable. He is ambulating without difficulty, tolerating p.o. intake. He is not short of breath. Chest x-ray showed stable chest exam and no concern for pneumothorax and dual- lead ICD pacer in place. He is not reporting any pain and overall feels ready for discharge. PHYSICAL EXAMINATION: VITAL SIGNS: Most recent vital signs; temperature 97.8, pulse 65, blood pressure 152/66, respirations 18, oxygen is 95% on room air. GENERAL: The patient is alert and oriented. Speech is clear. Affect is appropriate. He is resting comfortably during the examination. He is in no apparent distress. HEENT: Normocephalic, atraumatic. Sclerae are anicteric. EOMs are intact. NECK: Supple without jugular venous distention. LUNGS: Clear to auscultation bilaterally. HEART: His heart rate is regularly regular. His ICD is seated at the left infraclavicular fossa. There is minimal swelling and very slight bruising just below the incision. Incision edges are well approximated without any drainage or concern for infection. There is some mild crepitus felt mostly posterior and lateral to the device, but this very minimal. EXTREMITIES: Warm and dry to touch without clubbing, cyanosis, or edema. Gait is stable. NEUROLOGIC: Grossly intact and nonfocal. DEVICE CHECK: Medtronic Evera MIKKI CARTER, date of implant is on 08/12/2018. Lead impedances are stable. Capture thresholds are stable. Current mode is AAIR to DDDR with a lower rate limit of 60. DISCHARGE PLANNING: The patient is in stable condition. We will discharge him home today. We will have him take Keflex 500 mg p.o. q.i.d. x1 week for infection prophylaxis following implant. He will follow up in 10 to 14 days at [facility] for wound and device check and contact [facility] with any questions or concerns following his ICD implant in the interim. Otherwise, we will resume his home medications as previously taken. DISCHARGE MEDICATIONS: Include; 1. CoQ10 of 60 mg p.o. q.a.m. 2. Potassium chloride 10 mEq p.o. q.a.m. 3. Multivitamin p.o. b.i.d. 4. Lisinopril 20 mg p.o. b.i.d. 5. NovoLog FlexPen as directed. 6. Toujeo 26 units q.a.m. 7. Lasix 40 mg q.a.m. 8. Coreg 12.5 mg p.o. b.i.d. 9. Lipitor 20 mg p.o. at bedtime. 10. Aspirin 81 mg daily. 11. Eliquis 2.5 mg p.o. b.i.d. 12. A prescription was sent in for the Keflex 500 mg p.o. q.6 hours x7 days. Job ID: [id number] [facility]
== END 2018-08-13 13:36 | disposition home or self-care (01) ==
LOC: CCL 07:49 → 2SW 12:18
PROVIDERS: ADMIT Internal Medicine Cardiovascular Disease; ATTEND Internal Medicine Cardiovascular Disease
PROC: 4A023FZ Measurement of Cardiac Rhythm, Percutaneous Approach (ICD-10-PCS; principal; 2018-08-12)
PROC: 4A0234Z Measurement of Cardiac Electrical Activity, Percutaneous Approach (ICD-10-PCS; 2018-08-12)
PROC: 02K83ZZ Map Conduction Mechanism, Percutaneous Approach (ICD-10-PCS; 2018-08-12)
PROC: 0JH608Z Insertion of Defibrillator Generator into Chest Subcutaneous Tissue and Fascia, Open Approach (ICD-10-PCS; 2018-08-12)
PROC: 02H63KZ Insertion of Defibrillator Lead into Right Atrium, Percutaneous Approach (ICD-10-PCS; 2018-08-12)
PROC: 02HK3KZ Insertion of Defibrillator Lead into Right Ventricle, Percutaneous Approach (ICD-10-PCS; 2018-08-12)
DX: I50.22 Chronic systolic (congestive) heart failure (principal); I25.5 Ischemic cardiomyopathy; I48.0 Paroxysmal atrial fibrillation; I49.02 Ventricular flutter; I25.10 Atherosclerotic heart disease of native coronary artery without angina pectoris; I25.2 Old myocardial infarction; E11.22 Type 2 diabetes mellitus with diabetic chronic kidney disease; N18.3 Chronic kidney disease, stage 3 (moderate); I35.0 Nonrheumatic aortic (valve) stenosis; Z95.1 Presence of aortocoronary bypass graft; Z79.01 Long term (current) use of anticoagulants; Z79.82 Long term (current) use of aspirin; Z79.4 Long term (current) use of insulin; Z79.899 Other long term (current) drug therapy
CPT/HCPCS: 33249; 71045; 76942; 82962 ×2; 92960; 93005; 93620; 93798; 96374 ×2; C1721; C1730; C1769; C1777; C1898; G0378; 36416; 93010; J0131; J0360; J1644; J2001; J2370; J2704; J3010; J3490

== ENCOUNTER 2019-05-19 09:30 | Outpatient (CLI) | payer MEDICARE ==
--- NOTE | 2019-05-19 10:56 | CT ---
CT ABDOMEN AND PELVIS WITHOUT CONTRAST: HISTORY: An 83-year-old male with gross hematuria. FINDINGS: Absence of oral and IV contrast reduces the sensitivity of the exam, particularly for evaluation of s olid organs involved. The lung bases are clear. The patient is post cholecystectomy. No free air or free fluid is seen in the abdomen or pelvis. There are vascular calcifications with a left renal stent. Calcified granul omas are seen in the spleen. There are degenerative changes in the spine. No free air or free fluid is seen in the abdomen or pelvis. Bilateral renal calculi are present. The largest is on the left measuring 19 mm. There are cysts in the left kidney, the largest measuring 2.2 cm. No calculi are seen in the ureters or the urinary bl adder. No hydroureteral nephrosis noted on either side. There is a 14 mm mass in the anterolateral aspect of the urinary bladder on the left. The prostate is enlarged. There is colonic diverticulosi s. IMPRESSION: 1. Nonobstructing bilateral renal calculi. 2. Left renal cyst. 3. Urinary bladder mass. Further evaluation with cystoscopy is recommended. 4. Prostatic enlargement. 5. Colonic diverticulosis. POS: [facility]
== END 2019-05-19 09:31 | disposition home or self-care (01) ==
LOC: CT 09:30
DX: R31.0 Gross hematuria (principal); N20.0 Calculus of kidney; N28.1 Cyst of kidney, acquired; N40.0 Benign prostatic hyperplasia without lower urinary tract symptoms; K57.30 Diverticulosis of large intestine without perforation or abscess without bleeding; N32.89 Other specified disorders of bladder
CPT/HCPCS: 74176

== ENCOUNTER 2021-07-10 10:08 | Outpatient (CLI) | payer MEDICARE ==
[2021-07-10 11:32] LABS: Hemoglobin 13.4 g/dL (13.5-17.5); Mean Corpuscular Hemoglobin 32.5 pg (27.0-33.0); Mean Corpuscular Volume 101.7 fl (81.2-95.1); Mean Platelet Volume 9.9 fl (7.4-10.4); Platelet Count 240 10x3/uL (150-450); RBC Distribution Width 12.8 % (11.5-14.5); Red Blood Cell (RBC) Count 4.12 10x6/uL (4.32-5.72); White Blood Cell (WBC) Count 12.2 10x3/uL (3.5-10.5)
[2021-07-10 11:36] LABS: Bilirubin Neg (Negative); Blood, Urine Negative (Negative); Clarity Clear (Clear); Glucose, Urine (Dipstick) Normal (Negative); Ketone, Urine Negative (Negative); Leukocyte Negative (Negative); Nitrite Negative (Negative); Protein, Urine (Dipstick) Negative (Neg-Trace); Specific Gravity, Urine 1.015 (1.002-1.036); Urobilinogen Normal mg/dL (Less than 2)
[2021-07-10 11:42] LABS: PTT 27.9 sec (22.0-33.0); Prothrombin Time 11.3 sec (9.5-12.1)
[2021-07-10 11:50] LABS: ALT (SGPT) 28 U/L (8-55); AST (SGOT) 20 U/L (5-34); Albumin 3.8 g/dL (3.4-4.8); Alkaline Phosphatase 76 U/L (40-110); Anion Gap 11 mmol/L (10-20); BUN (Urea Nitrogen) 24 mg/dL (8.4-25.7); Bilirubin, Direct 0.3 mg/dL (0.1-0.3); Bilirubin, Total 0.5 mg/dL (0.2-1.2); Calc. Creatinine Clearance 0 mL/min (70-130); Calcium 8.6 mg/dL (7.8-10.44); Carbon Dioxide 26 mmol/L (23-31); Chloride 109 mmol/L (98-107); Globulin 3.2 g/dL (2.4-3.5); Glucose 141 mg/dL (83-110); Potassium 3.9 mmol/L (3.5-5.1); Sodium 142 mmol/L (136-145)
[2021-07-10 18:51] LABS: SARS-CoV-2 PCR by NAA Not Detected (NotDetected)
== END 2021-07-10 10:09 | disposition home or self-care (01) ==
LOC: LABBT 10:08
PROVIDERS: ATTEND Internal Medicine Cardiovascular Disease
DX: Z01.818 Encounter for other preprocedural examination (principal); I48.91 Unspecified atrial fibrillation; I50.9 Heart failure, unspecified; Z20.822 Contact with and (suspected) exposure to COVID-19
CPT/HCPCS: 80053; 80076; 81003; 84443; 85027; 85610; 85730; 86850; 86900; 86901; 93005; U0003; U0005; 93010

== ENCOUNTER 2021-07-10 10:30 | Inpatient (IN) | payer MEDICARE ==
[2021-07-10 11:32] LABS: Hemoglobin 13.4 g/dL (13.5-17.5); Mean Corpuscular Hemoglobin 32.5 pg (27.0-33.0); Mean Corpuscular Volume 101.7 fl (81.2-95.1); Mean Platelet Volume 9.9 fl (7.4-10.4); Platelet Count 240 10x3/uL (150-450); RBC Distribution Width 12.8 % (11.5-14.5); Red Blood Cell (RBC) Count 4.12 10x6/uL (4.32-5.72); White Blood Cell (WBC) Count 12.2 10x3/uL (3.5-10.5)
[2021-07-10 11:36] LABS: Bilirubin Neg (Negative); Blood, Urine Negative (Negative); Clarity Clear (Clear); Glucose, Urine (Dipstick) Normal (Negative); Ketone, Urine Negative (Negative); Leukocyte Negative (Negative); Nitrite Negative (Negative); Protein, Urine (Dipstick) Negative (Neg-Trace); Specific Gravity, Urine 1.015 (1.002-1.036); Urobilinogen Normal mg/dL (Less than 2)
[2021-07-10 11:42] LABS: PTT 27.9 sec (22.0-33.0); Prothrombin Time 11.3 sec (9.5-12.1)
[2021-07-10 11:50] LABS: ALT (SGPT) 28 U/L (8-55); AST (SGOT) 20 U/L (5-34); Albumin 3.8 g/dL (3.4-4.8); Alkaline Phosphatase 76 U/L (40-110); Anion Gap 11 mmol/L (10-20); BUN (Urea Nitrogen) 24 mg/dL (8.4-25.7); Bilirubin, Direct 0.3 mg/dL (0.1-0.3); Bilirubin, Total 0.5 mg/dL (0.2-1.2); Calc. Creatinine Clearance 0 mL/min (70-130); Calcium 8.6 mg/dL (7.8-10.44); Carbon Dioxide 26 mmol/L (23-31); Chloride 109 mmol/L (98-107); Globulin 3.2 g/dL (2.4-3.5); Glucose 141 mg/dL (83-110); Potassium 3.9 mmol/L (3.5-5.1); Sodium 142 mmol/L (136-145)
[2021-07-10 18:51] LABS: SARS-CoV-2 PCR by NAA Not Detected (NotDetected)
[2021-07-12 10:33] VITALS: BMI 20.3
[2021-07-15] MEDS ORDERED: CEFAZOLIN 1 GM VIAL ONE (06:31)
[2021-07-15] MEDS ORDERED: Protamine Sulfate 50 MG/5 ML VIAL ONE (06:31)
[2021-07-15] MEDS ORDERED: Heparin 10,000 UNITS/ 10 ML VIAL ONE (06:31)
[2021-07-15] MEDS ORDERED: Fentanyl 100 MCG/2 ML VIAL ONE (07:07)
[2021-07-15] MEDS ORDERED: PHENYLEPHRINE-NS 100 MCG/ML 10 ML SYRINGE ONE (07:07)
[2021-07-15] MEDS ORDERED: PROPOFOL 200 MG/20 ML VIAL ONE (07:51)
[2021-07-15] MEDS ORDERED: Ondansetron PF 4 MG/2 ML Vial ONE (07:51)
[2021-07-15] MEDS ORDERED: Ketorolac Tromethamine 30 MG/ML VIAL ONE (07:51)
[2021-07-15] MEDS ORDERED: Phenylephrine 10 MG/ML VIAL ONE (07:51)
[2021-07-15] MEDS ORDERED: Glycopyrrolate 0.2 MG/ML 5 ML SYRINGE ONE (07:51)
[2021-07-15] MEDS ORDERED: Lidocaine 1% PF 5 ML VIAL ONE (07:51)
[2021-07-15] MEDS ORDERED: Rocuronium Bromide 10 MG/ML (10ML VIAL) ONE (07:51)
== END 2021-07-15 14:30 | disposition home or self-care (01) | DRG 274 ==
LOC: SURG A 07-15 05:50
PROVIDERS: ADMIT Internal Medicine Cardiovascular Disease; ATTEND Internal Medicine Cardiovascular Disease
PROC: 02L73DK Occlusion of Left Atrial Appendage with Intraluminal Device, Percutaneous Approach (ICD-10-PCS; principal; 2021-07-15)
PROC: B24BZZ4 Ultrasonography of Heart with Aorta, Transesophageal (ICD-10-PCS; 2021-07-15)
PROC: 4A023N7 Measurement of Cardiac Sampling and Pressure, Left Heart, Percutaneous Approach (ICD-10-PCS; 2021-07-15)
PROC: B2111ZZ Fluoroscopy of Multiple Coronary Arteries using Low Osmolar Contrast (ICD-10-PCS; 2021-07-15)
DX: I48.0 Paroxysmal atrial fibrillation (principal); I50.22 Chronic systolic (congestive) heart failure; I13.0 Hypertensive heart and chronic kidney disease with heart failure and stage 1 through stage 4 chronic kidney disease, or unspecified chronic kidney disease; J96.10 Chronic respiratory failure, unspecified whether with hypoxia or hypercapnia; Z00.6 Encounter for examination for normal comparison and control in clinical research program; Z20.822 Contact with and (suspected) exposure to COVID-19; I25.5 Ischemic cardiomyopathy; E11.22 Type 2 diabetes mellitus with diabetic chronic kidney disease; I49.3 Ventricular premature depolarization; N18.30 Chronic kidney disease, stage 3 unspecified; E78.5 Hyperlipidemia, unspecified; E11.51 Type 2 diabetes mellitus with diabetic peripheral angiopathy without gangrene; Z95.810 Presence of automatic (implantable) cardiac defibrillator; Z95.1 Presence of aortocoronary bypass graft; Z79.82 Long term (current) use of aspirin; Z79.01 Long term (current) use of anticoagulants; Z79.4 Long term (current) use of insulin; Z79.899 Other long term (current) drug therapy; Z98.890 Other specified postprocedural states; Z98.1 Arthrodesis status; I25.2 Old myocardial infarction; Z85.820 Personal history of malignant melanoma of skin; Z87.898 Personal history of other specified conditions; Z86.73 Personal history of transient ischemic attack (TIA), and cerebral infarction without residual deficits; Z90.49 Acquired absence of other specified parts of digestive tract; Z82.49 Family history of ischemic heart disease and other diseases of the circulatory system; Z83.3 Family history of diabetes mellitus; Z80.9 Family history of malignant neoplasm, unspecified; Z87.442 Personal history of urinary calculi; I25.10 Atherosclerotic heart disease of native coronary artery without angina pectoris; Z87.891 Personal history of nicotine dependence
CPT/HCPCS: 33340; 36430; 80053; 80076; 81003; 84443; 85027; 85347; 85610; 85730; 86850; 86900; 86901; 93306; 93312; 93662; C1759; J0690; J1644; J1885; J2370; J2405; J2704; J2720; J3010; U0003; U0005

== ENCOUNTER 2021-08-21 10:43 | Outpatient (CLI) | payer MEDICARE ==
[2021-08-21 11:54] LABS: Hemoglobin 12.5 g/dL (13.5-17.5); Mean Corpuscular HGB CONC 31.8 g/dL (32.0-36.0); Mean Corpuscular Hemoglobin 32.2 pg (27.0-33.0); Mean Corpuscular Volume 101.3 fl (81.2-95.1); Mean Platelet Volume 10.1 fl (7.4-10.4); Platelet Count 218 10x3/uL (150-450); RBC Distribution Width 12.8 % (11.5-14.5); Red Blood Cell (RBC) Count 3.88 10x6/uL (4.32-5.72)
[2021-08-21 12:11] LABS: Anion Gap 11 mmol/L (10-20); BUN (Urea Nitrogen) 28 mg/dL (8.4-25.7); Calc. Creatinine Clearance 0 mL/min (70-130); Calcium 8.6 mg/dL (7.8-10.44); Carbon Dioxide 28 mmol/L (23-31); Chloride 105 mmol/L (98-107); Glucose 199 mg/dL (83-110); Potassium 4.2 mmol/L (3.5-5.1); Sodium 140 mmol/L (136-145)
[2021-08-21 21:02] LABS: SARS-CoV-2 PCR by NAA DETECTED (NotDetected)
== END 2021-08-21 10:44 | disposition home or self-care (01) ==
LOC: LABBT 10:43
PROVIDERS: ATTEND Internal Medicine Cardiovascular Disease
DX: U07.1 COVID-19 (principal); Z01.812 Encounter for preprocedural laboratory examination; I50.9 Heart failure, unspecified; I48.91 Unspecified atrial fibrillation
CPT/HCPCS: 80048; 85027; U0003; U0005

== ENCOUNTER 2021-09-18 10:42 | Outpatient (CLI) | payer MEDICARE ==
[2021-09-18 11:42] LABS: Hemoglobin 11.8 g/dL (13.5-17.5); Mean Corpuscular HGB CONC 31.5 g/dL (32.0-36.0); Mean Corpuscular Hemoglobin 31.9 pg (27.0-33.0); Mean Corpuscular Volume 101.4 fl (81.2-95.1); Mean Platelet Volume 9.9 fl (7.4-10.4); Platelet Count 158 10x3/uL (150-450); RBC Distribution Width 13.6 % (11.5-14.5); White Blood Cell (WBC) Count 6.6 10x3/uL (3.5-10.5)
[2021-09-18 12:06] LABS: Anion Gap 10 mmol/L (10-20); BUN (Urea Nitrogen) 23 mg/dL (8.4-25.7); Calc. Creatinine Clearance 0 mL/min (70-130); Calcium 8.1 mg/dL (7.8-10.44); Carbon Dioxide 25 mmol/L (23-31); Chloride 111 mmol/L (98-107); Glucose 219 mg/dL (83-110); Potassium 3.7 mmol/L (3.5-5.1); Sodium 142 mmol/L (136-145)
[2021-09-18 12:27] LABS: Prothrombin Time 11.4 sec (9.5-12.1)
== END 2021-09-18 10:43 | disposition home or self-care (01) ==
LOC: LABBT 10:42
PROVIDERS: ATTEND Internal Medicine Cardiovascular Disease
DX: Z01.818 Encounter for other preprocedural examination (principal); I50.9 Heart failure, unspecified; I48.91 Unspecified atrial fibrillation
CPT/HCPCS: 80048; 85027; 85610; 85730; 93005; 93010

== ENCOUNTER 2021-09-23 08:12 | Day surgery (SDC) | payer MEDICARE ==
[2021-08-15 12:34] VITALS: BMI 19.2
[2021-09-23] MEDS ORDERED: PROPOFOL 0 ML ONE (11:25)
[2021-09-23] MEDS ORDERED: PROPOFOL 20 ML ONE (11:25)
[2021-09-23] MEDS ORDERED: Lidocaine 1% PF 5 ML VIAL ONE (11:35)
[2021-09-23] MEDS ORDERED: ePHEDrine Sulfate 50 MG/10 ML VIAL ONE (12:07)
== END 2021-09-23 12:50 | disposition home or self-care (01) ==
LOC: SDC 08:12
PROVIDERS: ATTEND Internal Medicine Cardiovascular Disease
PROC: B24BZZ4 Ultrasonography of Heart with Aorta, Transesophageal (ICD-10-PCS; principal; 2021-09-23)
DX: I48.0 Paroxysmal atrial fibrillation (principal); I25.5 Ischemic cardiomyopathy; I49.3 Ventricular premature depolarization; I34.0 Nonrheumatic mitral (valve) insufficiency; I70.0 Atherosclerosis of aorta; I13.0 Hypertensive heart and chronic kidney disease with heart failure and stage 1 through stage 4 chronic kidney disease, or unspecified chronic kidney disease; E11.22 Type 2 diabetes mellitus with diabetic chronic kidney disease; N18.30 Chronic kidney disease, stage 3 unspecified; I50.22 Chronic systolic (congestive) heart failure; I25.2 Old myocardial infarction; I25.10 Atherosclerotic heart disease of native coronary artery without angina pectoris; E78.5 Hyperlipidemia, unspecified; Z87.891 Personal history of nicotine dependence; Z79.01 Long term (current) use of anticoagulants; Z79.4 Long term (current) use of insulin; Z79.82 Long term (current) use of aspirin; Z79.899 Other long term (current) drug therapy; Z95.1 Presence of aortocoronary bypass graft; Z95.810 Presence of automatic (implantable) cardiac defibrillator; Z95.818 Presence of other cardiac implants and grafts; Z98.1 Arthrodesis status
CPT/HCPCS: 36416; 93312; J2704